=== PATIENT | female | born 1955 | race Asian ===

== ENCOUNTER 2019-02-14 08:49 | Emergency (ER) | payer MEDICAID, OTHER ==
[2019-02-14] MEDS ORDERED: IPRATROPIUM/ALBUTEROL 3 ML NEB INH STA (09:13)
[2019-02-14] MEDS ORDERED: CHERRY SYRUP 10 ML UDC PO ONE (09:13)
[2019-02-14] MEDS ORDERED: DEXAMETHASONE 10 MG/ML VIAL PO STA (09:13)
--- NOTE | 2019-02-14 09:17 | ED Physician Documentation ---
PD HPI DYSPNEA - Stated complaint Stated Complaint: SOA - Chief complaint Chief Complaint: Resp - History obtained from History obtained from: Patient, Family - History of Present Illness Timing - onset: How many days ago (4) Timing - onset during: Rest Timing - duration: Days (4) Timing - details: Gradual onset, Still present Inciting event(s): URI Improved by: Rest Worsened by: Exertion, Coughing Associated symptoms: Cough, Wheezing Similar symptoms before: Diagnosis (asthma) Recently seen: Not recently seen - Additional information Additional information: 63-year-old female with a remote history of asthma has not had use inhaler more than 10 years. She is developed a cough and congestion over the past 4 days and her friend who had the same cough is now resolved. The patient has increased shortness of breath and does not feel well.She has not had fever that she is aware of and she denies any pain in her ears or sinuses. Review of Systems Constitutional: reports: Fatigue. denies: Fever Eyes: denies: Decreased vision Ears: denies: Ear pain Nose: reports: Rhinorrhea / runny nose, Congestion Throat: denies: Sore throat Cardiac: denies: Chest pain / pressure, Palpitations Respiratory: reports: Dyspnea, Cough, Wheezing GI: denies: Abdominal Pain, Nausea, Vomiting : denies: Dysuria Skin: denies: Rash Musculoskeletal: denies: Neck pain, Back pain, Extremity pain Neurologic: denies: Generalized weakness, Focal weakness, Numbness PD PAST MEDICAL HISTORY - Present Medications Home Medications: Ambulatory Orders Medication Instructions Recorded Confirmed Albuterol Sulf [Ventolin Hfa 1 - 2 puffs INH Q4HR PRN #1 inhaler 02/14/19 Inhaler] Aspirin 325 mg PO 02/14/19 Azithromycin [Zithromax] 250 mg PO DAILY #6 tablet 02/14/19 Naproxen [Naprosyn] 250 mg PO ONCE 02/14/19 02/14/19 predniSONE [Prednisone] 40 mg PO DAILY #10 tablet 02/14/19 - Allergies Allergies/Adverse Reactions: Allergies Allergy/AdvReac Type Severity Reaction Status Date / Time clindamycin Allergy Rash Verified 02/14/19 08:58 PD ED PE NORMAL - Vitals Vital signs reviewed: Yes (tachycardic hypertensive and hypoxic ) - General General: Alert and oriented X 3, Well developed/nourished, Other (The patient is tachypneic at rest without audible wheeze. She has short shallow breaths. ) - HEENT HEENT: Atraumatic, PERRL, EOMI, Ears normal, Moist mucous membranes, Pharynx benign, Dentition benign - Neck Neck: Supple, no meningeal sign, No bony TTP - Cardiac Cardiac: RRR, No murmur - Respiratory Respiratory: Other (tachypneic at rest with markedly diminished breath sounds ) - Abdomen Abdomen: Soft, Non tender - Back Back: No CVA TTP, No spinal TTP - Derm Derm: Normal color, Warm and dry, No rash - Extremities Extremities: No deformity, No edema - Neuro Neuro: Alert and oriented X 3, perinatal specialist 2-12 intact, No motor deficit, No sensory deficit, Normal speech Eye Opening: Spontaneous Motor: Obeys Commands Verbal: Oriented GCS Score: 15 - Psych Psych: Normal mood, Normal affect Results - Vitals Vitals: Vital Signs - 24 hr 02/14/19 02/14/19 02/14/19 08:56 09:06 09:17 Temperature 37.2 C 36.8 C Heart Rate 114 H 110 H 105 H Respiratory 22 22 22 Rate Blood Pressure 122/96 H 132/112 H 151/94 H O2 Saturation 88 L 95 94 02/14/19 02/14/19 02/14/19 09:27 09:36 10:03 Temperature Heart Rate 101 H 101 H 101 H Respiratory 22 20 20 Rate Blood Pressure 160/93 H 111/69 O2 Saturation 93 2 L 02/14/19 02/14/19 02/14/19 10:06 10:16 11:03 Temperature 36.8 C Heart Rate 96 97 Respiratory 20 20 Rate Blood Pressure 112/71 O2 Saturation 95 93 Oxygen O2 Source Room air Oxygen Flow Rate 2 - Rads (name of study) chest 2 view Radiology: Prelim report reviewed (Impression: 1. No acute abnormality. 2 Benign anterior basilar left lower lobe parenchymal scar of no significance.), EMP read indepedently, See rad report PD MEDICAL DECISION MAKING - ED course Complexity details: reviewed results, re-evaluated patient, considered differential, d/w patient, d/w family ED course: 63-year-old female with a prior history of asthma has developed acute reactive airway disease and she is administered a DuoNeb treatment with marked improvement she is administered a second treatment consisting of albuterol she has further improvement. She is placed onto a course of antibiotic and prednisone as well as a prescription for an inhaler and she is taught use of the inhaler with spacer. Departure - Departure Disposition: 01 Home, Self Care Clinical Impression: Asthmatic bronchitis Qualifiers: Asthma severity: mild Asthma persistence: intermittent Asthma complication type: with acute exacerbation Qualified Code(s): J45.21 - Mild intermittent asthma with (acute) exacerbation Condition: Stable Instructions: ED Bronchitis Asthmatic Follow-Up: [facility] [Provider Group] Prescriptions: Albuterol Sulf [Ventolin Hfa Inhaler] 1 - 2 puffs INH Q4HR PRN #1 inhaler PRN Reason: Shortness Of Air/Wheezing Azithromycin [Zithromax] 250 mg PO DAILY #6 tablet predniSONE [Prednisone] 40 mg PO DAILY #10 tablet Discharge Date/Time: 02/14/19 11:04
--- NOTE | 2019-02-14 10:00 | XRAY Report ---
Reason: cough soa Procedure Date: 02/14/2019 Accession Number: [id number] / [id number] Procedure: XR - Chest 2 View X-Ray CPT Code: 25577 FULL RESULT: EXAM: CHEST RADIOGRAPHY EXAM DATE: 02/14/2019 09:28 AM. CLINICAL HISTORY: Cough/. COMPARISON: XR CHEST PA AND LAT 04/09/2010 12:59 PM-report only. TECHNIQUE: 2 views. FINDINGS: Lungs/Pleura: No suspicious abnormality. There has been essentially complete resolution of the previous lateral basilar left lower lobe parenchymal and pleural consolidation. There is only a thin residual linear parenchymal scar seen best on lateral view. No other focal abnormality. Mediastinum: Heart and mediastinal contours are unremarkable. Other: None. IMPRESSION: 1. No acute abnormality. 2. Benign anterior basilar left lower lobe parenchymal scar of no significance. RADIA
[2019-02-14] MEDS ORDERED: ALBUTEROL NEB 2.5 MG/3 ML INH STA (10:07)
[2019-02-14 11:04] VITALS: BP 112/71
== END 2019-02-14 11:04 | disposition home or self-care (01) ==
LOC: ED 08:49
DX: J45.21 Mild intermittent asthma with (acute) exacerbation (principal); R09.02 Hypoxemia
CPT/HCPCS: 71046; 94640; 99284; A9270

== ENCOUNTER 2021-07-16 20:01 | Emergency (ER) | payer MEDICARE, OTHER ==
[2021-07-16 20:28] LABS: BASOPHILS # (AUTO) 0.1 10^3/uL (0.0-0.1); BASOPHILS % (AUTO) 0.9 %; EOSINOPHILS # (AUTO) 0.1 10^3/uL (0.0-0.7); EOSINOPHILS % (AUTO) 0.5 %; HCT - HEMATOCRIT 45.9 % (37.0-47.0); HGB - HEMOGLOBIN 16.9 g/dL (12.0-16.0); LYMPHOCYTES # (AUTO) 1.6 10^3/uL (1.5-3.5); LYMPHOCYTES % (AUTO) 14.3 %; MEAN CORPUSCULAR HEMOGLOBIN 35.4 pg (27.0-31.0); MEAN CORPUSCULAR HGB CONC 36.8 g/dL (32.0-36.0); MEAN PLATELET VOLUME 9.5 fL (7.9-10.8); MONOCYTES # (AUTO) 0.7 10^3/uL (0.0-1.0); MONOCYTES % (AUTO) 6.6 %; NEUTROPHILS # (AUTO) 8.5 10^3/uL (1.5-6.6); NRBC ABSOLUTE COUNT (AUTO) 0.03 x10^3/uL; NUCLEATED RED BLOOD CELLS AUTO 0.3 /100WBC; PLT - PLATELET COUNT 257 10^3/uL (130-450); RED BLOOD COUNT 4.78 10^6/uL (4.20-5.40); RED CELL DISTRIBUTION WIDTH 11.8 % (12.0-15.0); WHITE BLOOD COUNT 11.1 x10^3/uL (4.8-10.8)
[2021-07-16 20:41] LABS: ALBUMIN 4.5 g/dL (3.2-5.5); ALBUMIN/GLOBULIN RATIO 1.3 (1.0-2.2); BILIRUBIN,TOTAL 2.3 mg/dL (0.2-1.0); CALCIUM 9.9 mg/dL (8.5-10.3); CREATININE 0.8 mg/dL (0.4-1.0); POTASSIUM 3.1 mmol/L (3.5-5.0)
[2021-07-16] MEDS ORDERED: ONDANSETRON 4 MG/2 ML VIAL IVP STA (21:09)
[2021-07-16] MEDS ORDERED: SODIUM CHLORIDE 0.9% 1,000 ML IV STA (21:09)
[2021-07-16] MEDS ORDERED: FAMOTIDINE 20 MG/2 ML VIAL IVP STA (21:09)
[2021-07-16] MEDS ORDERED: POTASSIUM CHLOR 10 MEQ/100 ML 10 MEQ/100 ML BAG IV ONE (21:47)
--- NOTE | 2021-07-16 22:45 | ED Physician Documentation ---
History of Present Illness - Stated complaint Stated Complaint: ABD PX/VOM - Chief complaint Chief Complaint: Abd Pain - History obtained from History obtained from: Patient - Additonal information Additional information: 65-year-old woman with no past surgical history, social history of 3-4 alcoholic beverages daily, presents with generalized abdominal pain for the past 3 or days, gradual onset, currently 7 out of 10, sharp, constant, epigastric and nonradiating, associated with nonbloody nonbilious nausea and vomiting yesterday and today and one episode with blood streaks in it today. Patient is having trouble keeping fluids down. Denies urinary symptoms, fever, back pain, diarrhea Review of Systems Ten Systems: 10 systems reviewed and negative Constitutional: denies: Fever, Chills Cardiac: denies: Chest pain / pressure Respiratory: denies: Dyspnea GI: reports: Abdominal Pain, Nausea, Vomiting. denies: Diarrhea : denies: Dysuria, Frequency PD PAST MEDICAL HISTORY - Present Medications Home Medications: Ambulatory Orders Medication Instructions Recorded Confirmed Albuterol Sulf [Ventolin Hfa 1 - 2 puffs INH Q4HR PRN #1 inhaler 02/14/19 Inhaler] Aspirin 325 mg PO 02/14/19 Azithromycin [Zithromax] 250 mg PO DAILY #6 tablet 02/14/19 Naproxen [Naprosyn] 250 mg PO ONCE 02/14/19 02/14/19 predniSONE [Prednisone] 40 mg PO DAILY #10 tablet 02/14/19 Famotidine [Pepcid] 20 mg PO BID PRN #20 tablet 07/16/21 Ondansetron Odt [Zofran Odt] 4 mg TL Q6H PRN #10 tablet 07/16/21 - Allergies Allergies/Adverse Reactions: Allergies Allergy/AdvReac Type Severity Reaction Status Date / Time clindamycin Allergy Rash Verified 07/16/21 20:10 PD ED PE NORMAL - Vitals Vital signs reviewed: Yes - General General: Alert and oriented X 3, No acute distress, Well developed/nourished - HEENT HEENT: Atraumatic, PERRL, EOMI - Neck Neck: Supple, no meningeal sign - Cardiac Cardiac: RRR - Respiratory Respiratory: No respiratory distress, Clear bilaterally - Abdomen Abdomen: Non tender, Non distended, Other (epigastric discomfort to palpation. negative zurita sign) - Back Back: No CVA TTP - Derm Derm: Normal color, Warm and dry - Extremities Extremities: No edema - Neuro Neuro: No motor deficit, No sensory deficit - Psych Psych: Normal mood, Normal affect Results - Vitals Vitals: Vital Signs - 24 hr 07/16/21 07/16/21 20:05 21:10 Temperature 36.3 C L Heart Rate 108 H 95 Respiratory 18 18 Rate Blood Pressure 161/95 H 173/96 H O2 Saturation 99 100 Oxygen O2 Source Room air - Labs Labs: Laboratory Tests 07/16/21 07/16/21 20:22 20:22 WBC 11.1 H RBC 4.78 Hgb 16.9 H Hct 45.9 MCV 96.0 MCH 35.4 H MCHC 36.8 H RDW 11.8 L Plt Count 257 MPV 9.5 Neut # (Auto) 8.5 H Lymph # (Auto) 1.6 [place] # (Auto) 0.7 Eos # (Auto) 0.1 Baso # (Auto) 0.1 Absolute Nucleated RBC 0.03 Nucleated RBC % 0.3 Sodium 132 L Potassium 3.1 L Chloride 97 L Carbon Dioxide 15 L Anion Gap 20.0 H BUN 12 Creatinine 0.8 Estimated GFR (MDRD) 72 L Glucose 162 H Calcium 9.9 Total Bilirubin 2.3 H AST 95 H ALT 66 H Alkaline Phosphatase 129 H Total Protein 8.0 Albumin 4.5 Globulin 3.5 Albumin/Globulin Ratio 1.3 Lipase 179 H PD MEDICAL DECISION MAKING - ED course ED course: 65-year-old woman presents with epigastric abdominal pain and history of daily alcohol use. Pain significantly improved status post Pepcid and Zofran from 7 out of 10 to 4 out of 10. Nausea resolved. Patient is tolerating p.o. in the emergency department. Return precautions discussed and patient will follow up with Dr. Castaneda for potential referral to GI. Departure - Departure Disposition: 01 Home, Self Care Clinical Impression: Nausea and vomiting, Hypokalemia, Abdominal pain Condition: Good Instructions: Abdominal Pain, ED Nausea Vomiting Follow-Up: Andrew Castaneda MD [Physician No Access] - Prescriptions: Famotidine [Pepcid] 20 mg PO BID PRN #20 tablet PRN Reason: Pain Ondansetron Odt [Zofran Odt] 4 mg TL Q6H PRN #10 tablet PRN Reason: Nausea / Vomiting Comments: You were seen in the emergency department for nausea and vomiting. Please follow-up with Dr. Castaneda for referral to GI. You may need follow-up endoscopy or further testing. Your lab work was normal here with the exception of some mild low potassium and so potassium supplementation was given. You can take Zofran for nausea at home and I am also giving you a short course of Pepcid, a stomach medicine that can help relieve pain. Please return to the emergency department if you have any new or worsening symptoms or concerns.
[2021-07-16 22:59] VITALS: BP 157/86
[2021-07-16 23:07] LABS: GLUCOSE, URINE (UA) NEGATIVE (NEGATIVE); KETONES,URINE (UA) >=80 mg/dL (NEGATIVE); LEUKOCYTE ESTERASE, URINE NEGATIVE (NEGATIVE); NITRITE,URINE NEGATIVE (NEGATIVE); OCCULT BLOOD,URINE MODERATE (NEGATIVE); PROTEIN,URINE TRACE mg/dL (NEGATIVE); UROBILINOGEN,URINE 0.2 (NORMAL) E.U./dL (NORMAL)
[2021-07-16 23:10] LABS: CLARITY,URINE CLEAR (CLEAR)
[2021-07-16 23:11] LABS: BILIRUBIN,URINE NEGATIVE (NEGATIVE); ICTOTEST,URINE NEGATIVE
[2021-07-16 23:15] LABS: WBC,URINE 0-3 /HPF (0-5)
[2021-07-16 23:16] LABS: BACTERIA,URINE Rare /HPF (None Seen); SQUAMOUS EPITHELIAL CELL,UR FEW Squamous (<= Few)
== END 2021-07-16 23:00 | disposition home or self-care (01) ==
LOC: ED 20:01
DX: R10.84 Generalized abdominal pain (principal); E87.6 Hypokalemia; R11.2 Nausea with vomiting, unspecified
CPT/HCPCS: 36415; 80053; 81001; 81003; 83690; 85025; 87086; 96365; 96375; 99284

== ENCOUNTER 2021-09-12 09:41 | Outpatient (CLI) | payer MEDICARE, OTHER ==
--- NOTE | 2021-09-12 17:41 | DEXA Report ---
PROCEDURE: Dexa Spine and/or Hip INDICATIONS: MENOPAUSAL DISORDER TECHNIQUE: Dual energy x-ray absorptiometry (DXA) was performed on a [employer] System. Regions measur ed are the AP Spine, femoral neck, and if needed forearm. COMPARISON: None. FINDINGS: Lumbar Spine: Bone Mineral Density 0.705 g/cm/cm,T score -4.0 Left Hip: Bone Mineral Density 0.542 g/cm/cm,T score -3.7 Left Femoral Neck: Bone Mineral Density 0.608 g/cm/cm, T score -3.1 (T score greater or equal to -1.0: NORMAL) (T score from -1.1 to -2.4: OSTEOPENIA) (T score less than or equal to -2.5 to: OSTEOPOROSIS) Impression: Osteoporosis Patients with diagnosis of osteoporosis or osteopenia should have regular bone mineral density assess ment. For those eligible for Medicare, routine testing is allowed once every 2 years. Testing frequ ency can be increased for patients who have rapidly progressing disease or for those who are receivin g medical therapy to restore bone mass. Reviewed by: Sohail Cloud MD on 09/12/2021 5:39 PM PDT Approved by: Sohail Cloud MD on 09/12/2021 5:39 PM PDT Station ID: [id number]
== END 2021-09-12 09:42 | disposition home or self-care (01) ==
LOC: DI 09:41
PROVIDERS: ATTEND Internal Medicine
DX: N95.9 Unspecified menopausal and perimenopausal disorder (principal); M81.0 Age-related osteoporosis without current pathological fracture

== ENCOUNTER 2021-11-10 09:37 | Outpatient (CLI) | payer MEDICARE, OTHER ==
--- NOTE | 2021-11-10 16:26 | XRAY Report ---
PROCEDURE: Chest 2 View X-Ray INDICATIONS: COUGH TECHNIQUE: 2 view(s) of the chest. COMPARISON: 02/14/2019. FINDINGS: Surgical changes and devices: None. Lungs and pleura: No pleural effusions or pneumothorax. Lungs are clear. Mediastinum: Mediastinal contours are normal. Heart size is normal. Bones and chest wall: No suspicious bony abnormalities. Soft tissues appear unremarkable. IMPRESSION: No acute cardiopulmonary disease process. Reviewed by: Bety Olmedo MD, PhD on 11/10/2021 4:24 PM PDT Approved by: Bety Olemdo MD, PhD on 11/10/2021 4:24 PM PDT Station ID: [id number]
== END 2021-11-10 09:38 | disposition home or self-care (01) ==
LOC: DI 09:37
PROVIDERS: ATTEND Internal Medicine
DX: R05.9 Cough, unspecified (principal)

== ENCOUNTER 2022-04-08 08:09 | Outpatient (CLI) | payer MEDICARE, OTHER | END 2022-04-08 08:10 | disposition critical access hospital (66) | LOC: EMS 08:09 | DX: R06.03 Acute respiratory distress (principal); R11.0 Nausea | CPT/HCPCS: A0425; A0427 ==

== ENCOUNTER 2022-04-08 08:19 | Emergency (ER) | payer MEDICARE, OTHER ==
[2022-04-08] MEDS ORDERED: ALBUTEROL NEB 2.5 MG/3 ML INH STA (08:55)
[2022-04-08] MEDS ORDERED: SODIUM CHLORIDE 0.9% 1,000 ML IV STA (08:55)
[2022-04-08 09:07] LABS: BASOPHILS % (AUTO) 0.5 %; EOSINOPHILS # (AUTO) 0.1 10^3/uL (0.0-0.7); EOSINOPHILS % (AUTO) 1.1 %; HCT - HEMATOCRIT 44.5 % (37.0-47.0); HGB - HEMOGLOBIN 15.6 g/dL (12.0-16.0); LYMPHOCYTES # (AUTO) 1.3 10^3/uL (1.5-3.5); LYMPHOCYTES % (AUTO) 15.2 %; MEAN CORPUSCULAR HEMOGLOBIN 34.1 pg (27.0-31.0); MEAN CORPUSCULAR HGB CONC 35.1 g/dL (32.0-36.0); MEAN CORPUSCULAR VOLUME 97.2 fL (81.0-99.0); MEAN PLATELET VOLUME 9.4 fL (7.9-10.8); MONOCYTES # (AUTO) 0.3 10^3/uL (0.0-1.0); MONOCYTES % (AUTO) 3.4 %; NEUTROPHILS # (AUTO) 6.7 10^3/uL (1.5-6.6); NEUTROPHILS % (AUTO) 79.4 %; PLT - PLATELET COUNT 285 10^3/uL (130-450); RED BLOOD COUNT 4.58 10^6/uL (4.20-5.40); RED CELL DISTRIBUTION WIDTH 12.4 % (12.0-15.0); WHITE BLOOD COUNT 8.4 x10^3/uL (4.8-10.8)
--- NOTE | 2022-04-08 09:20 | XRAY Report ---
PROCEDURE: Chest 1 View X-Ray INDICATIONS: chest pain TECHNIQUE: One view of the chest was acquired. COMPARISON: CXR 11/10/2021, 02/14/2019. FINDINGS: Surgical changes and devices: None. Lungs and pleura: Lungs appear clear. Blunting of the left costophrenic angle. No pleural fusion. Mediastinum: Mediastinal contours appear normal. Heart size is normal. Bones and chest wall: No suspicious bony lesions. Overlying soft tissues appear unremarkable. IMPRESSION: Trace left pleural effusion suspected. No consolidation identified. Reviewed by: Sameer Sellers MD on 04/08/2022 9:[address] [facility] Approved by: Sameer Sellers MD on 04/08/2022 9:[address] [facility] Station ID: [id number]
[2022-04-08 09:21] LABS: ALBUMIN/GLOBULIN RATIO 1.4 (1.0-2.2); BILIRUBIN,TOTAL 3.1 mg/dL (0.2-1.0); CALCIUM 8.7 mg/dL (8.5-10.3); CREATININE 0.5 mg/dL (0.4-1.0); POTASSIUM 3.9 mmol/L (3.5-5.0); TOTAL PROTEIN 6.9 g/dL (6.7-8.2)
--- NOTE | 2022-04-08 10:11 | ED Physician Documentation ---
PD HPI DYSPNEA - Stated complaint Stated Complaint: SOA - Chief complaint Chief Complaint: Resp - History obtained from History obtained from: Patient, Family, EMS - Additional information Additional information: The patient comes to the emergency department chief complaint of shortness of breath over the last day. She has a history of asthma and likely COPD, as she has a previous smoking history of 40 years. The patient states she uses inhalers at home and has had episodes like this before, but not as bad. She is not sure what triggered it. Her states they do have a wood stove at home a nd that this sometimes does put out some dust and a little smoke. They do have an heap of filter their house which keeps some of the other dust down. The patient denies being ill recently. She denies fevers or new cough. Medics state when they arrived, the patient sats were in the Upper 70s ended up putting her on CPAP in route. She also got a DuoNeb and an albuterol neb, along with some IV Solu-Medrol, and had visible improvement during the transport. No other complaints at this time. Review of Systems Ten Systems: 10 systems reviewed and negative Constitutional: reports: Reviewed and negative Eyes: reports: Reviewed and negative Ears: reports: Reviewed and negative Nose: reports: Reviewed and negative Throat: reports: Reviewed and negative Cardiac: reports: Reviewed and negative Respiratory: reports: Dyspnea, Wheezing GI: reports: Reviewed and negative : reports: Reviewed and negative Skin: reports: Reviewed and negative Musculoskeletal: reports: Reviewed and negative Neurologic: reports: Reviewed and negative Psychiatric: reports: Reviewed and negative Endocrine: reports: Reviewed and negative Immunocompromised: reports: Reviewed and negative PD PAST MEDICAL HISTORY - Past Medical History Past Medical History: Yes Cardiovascular: Hypertension Respiratory: Asthma Neuro: Tremors Endocrine/Autoimmune: None GI: None 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 : None HEENT: None Psych: None Musculoskeletal: None Derm: None - Past Surgical History Past Surgical History: No - Present Medications Home Medications: Ambulatory Orders Medication Instructions Recorded Confirmed Albuterol Sulf [Ventolin Hfa 1 - 2 puffs INH Q4HR PRN #1 inhaler 02/14/19 04/08/22 Inhaler] Propranolol [Inderal] 40 mg PO TID 10/24/21 04/08/22 Albuterol Sulf [Ventolin Hfa 1 - 2 puffs INH Q4HR PRN #1 each 04/08/22 Inhaler] predniSONE [Deltasone] 60 mg PO DAILY 5 Days #15 tablet 04/08/22 - Allergies Allergies/Adverse Reactions: Allergies Allergy/AdvReac Type Severity Reaction Status Date / Time clindamycin Allergy Rash Verified 04/08/22 08:48 - Social History Does the pt smoke?: No Smoking Status: Current some day smoker Does the pt drink ETOH?: Yes ETOH Use: Liquor Does the pt have substance abuse?: Yes Substance Use and Type: CBD oil / Products - Immunizations Immunizations are current?: No Immunizations: Other immun not current PD ED PE NORMAL - Vitals Vital signs reviewed: Yes - General General: Alert and oriented X 3, Well developed/nourished, Other (Mild respiratory distress, speaking in full sentences with CPAP mask on) - HEENT HEENT: Atraumatic, PERRL, EOMI, Moist mucous membranes - Neck Neck: Supple, no meningeal sign - Cardiac Cardiac: RRR, No murmur, Strong equal pulses - Respiratory Respiratory: Other (Moderately diminished air movement bilaterally with fine wheezes. Mildly labored respirations.) - Abdomen Abdomen: Soft, Non tender, Non distended - Derm Derm: Normal color, Warm and dry, No rash - Extremities Extremities: No deformity, No edema - Neuro Neuro: Alert and oriented X 3 - Psych Psych: Normal mood, Normal affect Results - Vitals Vitals: Vital Signs - 24 hr 04/08/22 04/08/22 04/08/22 08:49 09:09 09:20 Temperature 37.4 C Heart Rate 84 84 89 Respiratory 26 H 22 19 Rate Blood Pressure 158/115 H 134/97 H O2 Saturation 98 97 If not protocol 2 4 : Oxygen Flow, liters/minute 04/08/22 04/08/22 09:33 10:00 Temperature Heart Rate 80 79 Respiratory 25 H 21 Rate Blood Pressure 116/79 112/72 O2 Saturation 100 97 If not protocol 2 2 : Oxygen Flow, liters/minute Oxygen O2 Source Nasal cannula Oxygen Flow Rate 2 - Labs Labs: Laboratory Tests 04/08/22 04/08/22 09:02 09:02 WBC 8.4 RBC 4.58 Hgb 15.6 Hct 44.5 MCV 97.2 MCH 34.1 H MCHC 35.1 RDW 12.4 Plt Count 285 MPV 9.4 Neut # (Auto) 6.7 H Lymph # (Auto) 1.3 L [place] # (Auto) 0.3 Eos # (Auto) 0.1 Baso # (Auto) 0.0 Absolute Nucleated RBC 0.00 Nucleated RBC % 0.0 Sodium 140 Potassium 3.9 Chloride 96 L Carbon Dioxide 27 Anion Gap 17.0 H BUN 13 Creatinine 0.5 Estimated GFR (MDRD) 123 Glucose 162 H Calcium 8.7 Total Bilirubin 3.1 H AST 138 H ALT 45 Alkaline Phosphatase 170 H Total Protein 6.9 Albumin 4.0 Globulin 2.9 Albumin/Globulin Ratio 1.4 Lipase 26 - Rads (name of study) cxr Radiology: Final report received, EMP read indepedently, See rad report (Trace pleural effusion, otherwise negative) PD MEDICAL DECISION MAKING - ED course Complexity details: reviewed old records, reviewed results, re-evaluated patient, considered differential, d/w patient ED course: The patient was given 1 more albuterol nebulizer treatment here in the ED. Her chest x-ray is unremarkable and on reevaluation, the patient was on 2 L of oxygen per nasal cannula, speaking easily in full sentences and looking very bright and perky. Patient was very much improved and felt that she was stable for discharge home. I will refill her albuterol inhaler and will also give her prescription for steroids. We have discussed the usual indications for return. Departure - Departure Disposition: 01 Home, Self Care Clinical Impression: COPD exacerbation Condition: Stable Instructions: ED COPD Flare Prescriptions: Albuterol Sulf [Ventolin Hfa Inhaler] 1 - 2 puffs INH Q4HR PRN #1 each PRN Reason: Shortness Of Air/Wheezing predniSONE [Deltasone] 60 mg PO DAILY 5 Days #15 tablet Comments: Your prescriptions have been electronically transmitted to the [facility] pharmacy in [place]. You have improved greatly with treatment in route and here in the emergency department. Please continue to take your albuterol inhaler up to every 4 hours if needed and take the steroids as well. If you are not getting relief with the use of these medications at home, then please seek reevaluation.
[2022-04-08 10:14] VITALS: BP 112/72
[2022-04-08 11:30] LABS: B. PARAPERTUSSIS- RESP PCR PAN NOT DETECTED; B. PERTUSSIS- RESP PCR PANEL NOT DETECTED; C. PNEUMONIAE- RESP PCR PANEL NOT DETECTED; CORONAVIRUS 229E-RESP PCR NOT DETECTED; CORONAVIRUS HKU1-RESP PCR NOT DETECTED; CORONAVIRUS NL63-RESP PCR NOT DETECTED; CORONAVIRUS OC43-RESP PCR NOT DETECTED; HUMAN METAPNEUMOVIRUS NOT DETECTED; INFLUENZA A- RESP PCR PANEL NOT DETECTED; INFLUENZA B - RESP PCR PANEL NOT DETECTED; M. PNEUMONIAE- RESP PCR PANEL NOT DETECTED; PARAINFLUENZA VIRUS 1 NOT DETECTED; PARAINFLUENZA VIRUS 2 NOT DETECTED; PARAINFLUENZA VIRUS 3 NOT DETECTED; PARAINFLUENZA VIRUS 4 NOT DETECTED; RHINOVIRUS/ENTEROVIRUS NOT DETECTED; RSV- RESP PCR PANEL NOT DETECTED; SARS-CoV-2 -RESP PCR PANEL NOT DETECTED
== END 2022-04-08 10:38 | disposition home or self-care (01) ==
LOC: EDUNIT# → ED 08:19
DX: J44.1 Chronic obstructive pulmonary disease with (acute) exacerbation (principal); Z87.891 Personal history of nicotine dependence
CPT/HCPCS: 36415; 80053; 83690; 85025; 87633; 94640; 94664; 99283

== ENCOUNTER 2022-05-19 08:33 | Emergency (ER) | payer MEDICARE, OTHER ==
[2022-05-19] MEDS ORDERED: IPRATROPIUM/ALBUTEROL 3 ML NEB INH STA ×2 (08:57→08:58)
[2022-05-19] MEDS ORDERED: predniSONE 20 MG TABLET PO STA (08:57)
[2022-05-19 09:17] LABS: BASOPHILS # (AUTO) 0.1 10^3/uL (0.0-0.1); BASOPHILS % (AUTO) 0.7 %; EOSINOPHILS # (AUTO) 0.5 10^3/uL (0.0-0.7); HCT - HEMATOCRIT 44.4 % (37.0-47.0); HGB - HEMOGLOBIN 14.9 g/dL (12.0-16.0); LYMPHOCYTES # (AUTO) 2.9 10^3/uL (1.5-3.5); LYMPHOCYTES % (AUTO) 40.1 %; MEAN CORPUSCULAR HEMOGLOBIN 33.2 pg (27.0-31.0); MEAN CORPUSCULAR HGB CONC 33.6 g/dL (32.0-36.0); MEAN CORPUSCULAR VOLUME 98.9 fL (81.0-99.0); MEAN PLATELET VOLUME 9.2 fL (7.9-10.8); MONOCYTES # (AUTO) 0.5 10^3/uL (0.0-1.0); MONOCYTES % (AUTO) 6.8 %; NEUTROPHILS # (AUTO) 3.3 10^3/uL (1.5-6.6); NEUTROPHILS % (AUTO) 45.1 %; PLT - PLATELET COUNT 288 10^3/uL (130-450); RED BLOOD COUNT 4.49 10^6/uL (4.20-5.40); RED CELL DISTRIBUTION WIDTH 12.9 % (12.0-15.0); WHITE BLOOD COUNT 7.3 x10^3/uL (4.8-10.8)
--- NOTE | 2022-05-19 09:18 | XRAY Report ---
PROCEDURE: Chest 1 View X-Ray INDICATIONS: Shortness of breath TECHNIQUE: One view of the chest was acquired. COMPARISON: 04/08/2022, 11/10/2021 FINDINGS: Surgical changes and devices: None. Lungs and pleura: No focal infiltrates are seen. There is stable blunting of the left costophrenic a ngle. The right costophrenic angle appears normal. No pneumothorax is seen. Mediastinum: Mediastinal contours appear normal. Heart size is normal. Bones and chest wall: No suspicious bony lesions. Age-appropriate degenerative changes are seen. Overlying soft tissues appear unremarkable. IMPRESSION: Stable study demonstrating stable blunting of the left costophrenic angle. A small pleural effusion i s suspected. Reviewed by: John Saldivar MD on 05/19/2022 8:17 AM [facility] Approved by: John Saldivar MD on 05/19/2022 8:17 AM [facility] Station ID: [id number]
[2022-05-19 09:30] LABS: ALBUMIN 4.2 g/dL (3.2-5.5); ALBUMIN/GLOBULIN RATIO 1.4 (1.0-2.2); BILIRUBIN,TOTAL 1.7 mg/dL (0.2-1.0); CALCIUM 9.1 mg/dL (8.5-10.3); CREATININE 0.4 mg/dL (0.4-1.0); TOTAL PROTEIN 7.3 g/dL (6.7-8.2)
[2022-05-19 09:31] LABS: POTASSIUM 4.1 mmol/L (3.5-5.0)
[2022-05-19 10:20] LABS: B. PARAPERTUSSIS- RESP PCR PAN NOT DETECTED; B. PERTUSSIS- RESP PCR PANEL NOT DETECTED; C. PNEUMONIAE- RESP PCR PANEL NOT DETECTED; CORONAVIRUS 229E-RESP PCR NOT DETECTED; CORONAVIRUS HKU1-RESP PCR NOT DETECTED; CORONAVIRUS NL63-RESP PCR NOT DETECTED; CORONAVIRUS OC43-RESP PCR NOT DETECTED; HUMAN METAPNEUMOVIRUS NOT DETECTED; INFLUENZA A- RESP PCR PANEL NOT DETECTED; INFLUENZA B - RESP PCR PANEL NOT DETECTED; M. PNEUMONIAE- RESP PCR PANEL NOT DETECTED; PARAINFLUENZA VIRUS 1 NOT DETECTED; PARAINFLUENZA VIRUS 2 NOT DETECTED; PARAINFLUENZA VIRUS 3 NOT DETECTED; PARAINFLUENZA VIRUS 4 NOT DETECTED; RHINOVIRUS/ENTEROVIRUS NOT DETECTED; RSV- RESP PCR PANEL NOT DETECTED; SARS-CoV-2 -RESP PCR PANEL NOT DETECTED
--- NOTE | 2022-05-19 10:35 | ED Physician Documentation ---
PD HPI DYSPNEA - Stated complaint Stated Complaint: SOA/COUGH - Chief complaint Chief Complaint: Resp - History obtained from History obtained from: Patient - Additional information Additional information: Patient is a 66-year-old who has a history of COPD Presenting for evaluation of shortness of breath for the past 3 days.Patient reports she has had a cough productive of clear sputum. She has been using her inhaler at home without any significant improvement. She denies chest pain. She denies abdominal pain, vomiting, leg swelling. Review of Systems Constitutional: denies: Fever Nose: denies: Congestion Cardiac: denies: Chest pain / pressure Respiratory: reports: Dyspnea, Cough GI: denies: Abdominal Pain : denies: Dysuria Musculoskeletal: denies: Back pain Neurologic: denies: Headache PD PAST MEDICAL HISTORY - Past Medical History Cardiovascular: Hypertension Respiratory: Asthma Neuro: Tremors Endocrine/Autoimmune: None GI: None OPTIONS ADVISOR: None : None HEENT: None Psych: None Musculoskeletal: None Derm: None - Past Surgical History Past Surgical History: No - Present Medications Home Medications: Ambulatory Orders Medication Instructions Recorded Confirmed Albuterol Sulf [Ventolin Hfa 1 - 2 puffs INH Q4HR PRN #1 inhaler 02/14/19 05/04/22 Inhaler] Propranolol [Inderal] 40 mg PO TID 10/24/21 05/04/22 Carbidopa/Levodopa 1 each PO DAILY 05/04/22 05/04/22 [Carbidopa-Levodopa 25-100 Tab] Benzonatate [Tessalon] 100 mg PO TID #15 cap 05/19/22 predniSONE [Deltasone] 60 mg PO DAILY 4 Days #12 tablet 05/19/22 - Allergies Allergies/Adverse Reactions: Allergies Allergy/AdvReac Type Severity Reaction Status Date / Time clindamycin Allergy Rash Verified 04/08/22 08:48 - Social History Does the pt smoke?: No Smoking Status: Current some day smoker Does the pt drink ETOH?: Yes Does the pt have substance abuse?: Yes - Immunizations Immunizations are current?: No Immunizations: Other immun not current PD ED PE NORMAL - General General: Alert and oriented X 3, No acute distress, Well developed/nourished - HEENT HEENT: Atraumatic - Neck Neck: Supple, no meningeal sign - Cardiac Cardiac: RRR, No murmur - Respiratory Respiratory: No respiratory distress, Other (Diffuse wheezing) - Abdomen Abdomen: Soft, Non tender - Derm Derm: Warm and dry - Extremities Extremities: No edema, No calf tenderness / cord - Neuro Neuro: Normal speech Results - Vitals Vitals: Vital Signs - 24 hr 05/19/22 05/19/22 05/19/22 08:43 08:50 09:16 Temperature 37.2 C Heart Rate 62 63 68 Respiratory 16 16 22 Rate Blood Pressure 201/96 H O2 Saturation 90 L 97 05/19/22 05/19/22 05/19/22 09:20 09:42 10:00 Temperature Heart Rate 63 60 68 Respiratory 18 18 21 Rate Blood Pressure 200/99 H 178/91 H 173/84 H O2 Saturation 95 94 95 05/19/22 10:30 Temperature Heart Rate 65 Respiratory 24 Rate Blood Pressure 198/99 H O2 Saturation 93 Oxygen O2 Source Room air - EKG (time done) 0917 Rate: Rate (enter#) (57) Rhythm: NSR [place]: Normal Ischemia: No: ST elevation c/w ischemia - Labs Labs: Laboratory Tests 05/19/22 05/19/22 05/19/22 09:05 09:11 09:11 WBC 7.3 RBC 4.49 Hgb 14.9 Hct 44.4 MCV 98.9 MCH 33.2 H MCHC 33.6 RDW 12.9 Plt Count 288 MPV 9.2 Neut # (Auto) 3.3 Lymph # (Auto) 2.9 [place] # (Auto) 0.5 Eos # (Auto) 0.5 Baso # (Auto) 0.1 Absolute Nucleated RBC 0.00 Nucleated RBC % 0.0 Sodium 137 Potassium 4.1 Chloride 98 L Carbon Dioxide 29 Anion Gap 10.0 BUN 14 Creatinine 0.4 Estimated GFR (MDRD) 160 Glucose 164 H Calcium 9.1 Total Bilirubin 1.7 H AST 31 ALT 16 Alkaline Phosphatase 71 Total Protein 7.3 Albumin 4.2 Globulin 3.1 Albumin/Globulin Ratio 1.4 Nasal Adenovirus (PCR) NOT DETECTED Nasal B. parapertussis DNA (PCR) NOT DETECTED Nasal Coronavir 229E PCR NOT DETECTED Nasal Coronavir HKU1 PCR NOT DETECTED Nasal Coronavir NL63 PCR NOT DETECTED Nasal Coronavir OC43 PCR NOT DETECTED Nasal Enterovir/Rhinovir PCR NOT DETECTED Nasal Influenza B PCR NOT DETECTED Nasal Influenza A PCR NOT DETECTED Nasal Parainfluen 1 PCR NOT DETECTED Nasal Parainfluen 2 PCR NOT DETECTED Nasal Parainfluen 3 PCR NOT DETECTED Nasal Parainfluen 4 PCR NOT DETECTED Nasal RSV (PCR) NOT DETECTED Nasal B.pertussis DNA PCR NOT DETECTED Nasal C.pneumoniae (PCR) NOT DETECTED Jaskaran Human Metapneumo PCR NOT DETECTED Nasal M.pneumoniae (PCR) NOT DETECTED Nasal SARS-CoV-2 (PCR) NOT DETECTED PD Medical Decision Making - ED course Complexity details: reviewed results, re-evaluated patient, d/w patient ED course: Patient is a 66-year-old presenting for evaluation of shortness of breath. Patient is wheezing but not requiring oxygen. She had improvement after 1 neb treatment. She was started on steroids. Labs, EKG, chest x-ray and respiratory panel were reviewed. No signs of pneumonia. Patient counseled on concerning symptoms to return for as well as plan for continued steroids, Albuterol as needed. Departure - Departure Disposition: 01 Home, Self Care Clinical Impression: COPD with exacerbation Condition: Stable Instructions: ED COPD Flare Prescriptions: predniSONE [Deltasone] 60 mg PO DAILY 4 Days #12 tablet Benzonatate [Tessalon] 100 mg PO TID #15 cap Comments: Your chest x-ray does not show pneumonia and your respiratory panel is negative. The respiratory panel checks for a number of common cold viruses as well as influenza, RSV and COVID. I will continue you on prednisone for the next 4 days and have also sent a prescription for cough medication to [facility] in [place]. Please make sure you use your inhaler as needed. If you have any worsening symptoms please consider return to the emergency department. Discharge Date/Time: 05/19/22 11:07
[2022-05-19 10:54] VITALS: BP 198/99
== END 2022-05-19 11:07 | disposition home or self-care (01) ==
LOC: ED 08:33
DX: J44.1 Chronic obstructive pulmonary disease with (acute) exacerbation (principal); F17.200 Nicotine dependence, unspecified, uncomplicated; Z20.822 Contact with and (suspected) exposure to COVID-19
CPT/HCPCS: 36415; 71045; 80053; 85025; 87633; 93005; 94640; 99284; J7512

== ENCOUNTER 2022-08-24 07:02 | Outpatient (CLI) | payer MEDICARE, OTHER | END 2022-08-24 23:59 | disposition critical access hospital (66) | LOC: EMS 07:02 | DX: R06.02 Shortness of breath (principal) | CPT/HCPCS: A0425; A0427 ==

== ENCOUNTER 2022-08-24 07:14 | Inpatient (IN) | payer MEDICARE, OTHER ==
[2022-08-24] MEDS ORDERED: IPRATROPIUM/ALBUTEROL 3 ML NEB INH STA (07:33)
[2022-08-24] MEDS ORDERED: DEXAMETHASONE 10 MG/ML VIAL IVP STA (07:34)
--- NOTE | 2022-08-24 07:35 | ED Physician Documentation ---
PD HPI DYSPNEA - Stated complaint Stated Complaint: RESP DISTRESS - Chief complaint Chief Complaint: Resp - History obtained from History obtained from: Patient - History of Present Illness Timing - onset: How many days ago (several days of cough, congestion, wheezing. Recent travel to [place] and started symptoms 2 days after returning.) Timing - details: Gradual onset, Still present Inciting event(s): URI, Immobilization/travel Improved by: Inhaler/neb (moderately initially, not well today.) Worsened by: Exertion, Coughing Associated symptoms: Cough, Wheezing. No: Bilateral edema, Unilateral edema Recently seen: Not recently seen Review of Systems Constitutional: reports: Chills, Myalgias, Fatigue Nose: reports: Congestion Throat: denies: Sore throat Cardiac: denies: Chest pain / pressure, Palpitations, Pedal edema, Calf pain Respiratory: reports: Dyspnea, Cough, Wheezing GI: denies: Vomiting, Diarrhea PD PAST MEDICAL HISTORY - Past Medical History Cardiovascular: Hypertension Respiratory: COPD Neuro: Tremors Endocrine/Autoimmune: None GI: None LIVING SKILLS ADVISOR: None : None HEENT: None Psych: None Musculoskeletal: None Derm: None - Past Surgical History Past Surgical History: No - Present Medications Home Medications: Ambulatory Orders Medication Instructions Recorded Confirmed Albuterol Sulf [Ventolin Hfa 1 - 2 puffs INH Q4HR PRN #1 inhaler 02/14/19 08/24/22 Inhaler] Propranolol [Inderal] 40 mg PO BID 10/24/21 08/24/22 Carbidopa/Levodopa 1 each PO BID 05/04/22 08/24/22 [Carbidopa-Levodopa 25-100 Tab] Aspirin [Greg] 1 tab PO DAILY 08/24/22 08/24/22 Beclomethasone Dipropionate [Qvar 2 puffs PO BID 08/24/22 08/24/22 Redihaler (40 mcg)] Carboxymethylcellulose 1% Opht 1 drops EACHEYE PRN PRN 08/24/22 08/24/22 [Refresh 1% Ophth Drops] Multivitamin with Minerals 1 tab PO DAILY 08/24/22 08/24/22 [Multivitamins with Minerals] - Allergies Allergies/Adverse Reactions: Allergies Allergy/AdvReac Type Severity Reaction Status Date / Time clindamycin Allergy Rash Verified 08/24/22 07:24 - Social History Does the pt smoke?: No Smoking Status: Current some day smoker Does the pt drink ETOH?: Yes Does the pt have substance abuse?: Yes - Immunizations Immunizations are current?: No Immunizations: Other immun not current PD ED PE NORMAL - Vitals Vital signs reviewed: Yes - General General: Alert and oriented X 3, Well developed/nourished, Other (some accessory muscle use and partial sentence dyspnea initially in ER. ) - HEENT HEENT: Ears normal, Moist mucous membranes, Pharynx benign - Neck Neck: Supple, no meningeal sign, No adenopathy - Cardiac Cardiac: RRR, No murmur - Respiratory Respiratory: No: Clear bilaterally (exp wheezing difffusely. No coarse sounds. No CHF. ) - Abdomen Abdomen: Soft, Non tender - Derm Derm: Normal color, Warm and dry - Extremities Extremities: No edema, No calf tenderness / cord - Neuro Neuro: Alert and oriented X 3, No motor deficit, Normal speech Results - Vitals Vitals: Vital Signs - 24 hr 08/24/22 08/24/22 08/24/22 07:19 07:48 08:06 Temperature 36.8 C Heart Rate 92 77 81 Respiratory 21 16 22 Rate Blood Pressure 186/160 H 149/79 H O2 Saturation 89 L 94 If not protocol 2 : Oxygen Flow, liters/minute 08/24/22 08/24/22 08/24/22 09:30 10:17 11:00 Temperature Heart Rate 76 87 Respiratory 20 20 Rate Blood Pressure 130/74 O2 Saturation 88 L 2 L If not protocol : Oxygen Flow, liters/minute 08/24/22 13:02 Temperature Heart Rate 93 Respiratory 22 Rate Blood Pressure 137/112 H O2 Saturation 94 If not protocol 2 : Oxygen Flow, liters/minute Oxygen O2 Source Nasal cannula Oxygen Flow Rate 2 - Labs Labs: Laboratory Tests 08/24/22 08/24/22 08/24/22 07:42 07:42 07:42 WBC 9.4 RBC 3.95 L Hgb 13.4 Hct 39.7 MCV 100.5 H MCH 33.9 H MCHC 33.8 RDW 13.3 Plt Count 314 MPV 9.1 Neut # (Auto) 6.6 Lymph # (Auto) 1.6 [place] # (Auto) 1.0 Eos # (Auto) 0.1 Baso # (Auto) 0.1 Absolute Nucleated RBC 0.00 Nucleated RBC % 0.0 Sodium 140 Potassium 3.2 L Chloride 101 Carbon Dioxide 27 Anion Gap 12.0 BUN 14 Creatinine 0.4 Estimated GFR (MDRD) 160 Glucose 123 H Calcium 8.8 Magnesium 2.0 Total Bilirubin 1.5 H AST 37 ALT 22 Alkaline Phosphatase 92 B-Natriuretic Peptide 178 H Total Protein 6.7 Albumin 3.8 Globulin 2.9 Albumin/Globulin Ratio 1.3 Lipase 29 Nasal Adenovirus (PCR) Nasal B. parapertussis DNA (PCR) Nasal Coronavir 229E PCR Nasal Coronavir HKU1 PCR Nasal Coronavir NL63 PCR Nasal Coronavir OC43 PCR Nasal Enterovir/Rhinovir PCR Nasal Influenza B PCR Nasal Influenza A PCR Nasal Parainfluen 1 PCR Nasal Parainfluen 2 PCR Nasal Parainfluen 3 PCR Nasal Parainfluen 4 PCR Nasal RSV (PCR) Nasal B.pertussis DNA PCR Nasal C.pneumoniae (PCR) Jaskaran Human Metapneumo PCR Nasal M.pneumoniae (PCR) Nasal SARS-CoV-2 (PCR) 08/24/22 07:43 WBC RBC Hgb Hct MCV MCH MCHC RDW Plt Count MPV Neut # (Auto) Lymph # (Auto) [place] # (Auto) Eos # (Auto) Baso # (Auto) Absolute Nucleated RBC Nucleated RBC % Sodium Potassium Chloride Carbon Dioxide Anion Gap BUN Creatinine Estimated GFR (MDRD) Glucose Calcium Magnesium Total Bilirubin AST ALT Alkaline Phosphatase B-Natriuretic Peptide Total Protein Albumin Globulin Albumin/Globulin Ratio Lipase Nasal Adenovirus (PCR) NOT DETECTED Nasal B. parapertussis DNA (PCR) NOT DETECTED Nasal Coronavir 229E PCR NOT DETECTED Nasal Coronavir HKU1 PCR NOT DETECTED Nasal Coronavir NL63 PCR NOT DETECTED Nasal Coronavir OC43 PCR NOT DETECTED Nasal Enterovir/Rhinovir PCR DETECTED A Nasal Influenza B PCR NOT DETECTED Nasal Influenza A PCR NOT DETECTED Nasal Parainfluen 1 PCR NOT DETECTED Nasal Parainfluen 2 PCR NOT DETECTED Nasal Parainfluen 3 PCR NOT DETECTED Nasal Parainfluen 4 PCR NOT DETECTED Nasal RSV (PCR) NOT DETECTED Nasal B.pertussis DNA PCR NOT DETECTED Nasal C.pneumoniae (PCR) NOT DETECTED Jaskaran Human Metapneumo PCR NOT DETECTED Nasal M.pneumoniae (PCR) NOT DETECTED Nasal SARS-CoV-2 (PCR) NOT DETECTED - Rads (name of study) chest xray Relevant Findings:: Prelim report reviewed, EMP independent interpretation of test (no infiltrates. Hyperexpanded lungs c/w COPD. ), See rad report PD Medical Decision Making - ED course Complexity details: re-evaluated patient (after neb treatments and steroids, much less laboring of breathing. Off oxygen however is still 88% saturation after just a minute. Rebounds back to 92% with just NC. ), considered differential (seems like infectious process with COPD flare. Exam does not suggest PE. No findings to suggest CHF.), d/w patient, d/w funeral pre need consultant (Hospitalist - who concurred the patient should be treated in the hospital. ) Reviewed Lab Results: chest xray without infiltrates. wbc not elevated at 9. resp viral panel positive for rhinovirus. Potassium at 3.2 low, with other electrolytes and renal function normal range. ED course: She has viral illness with exac of coPD. However, guidelines typically suggest use of antibiotics in COPD flares, so given dose Augmentin. Departure - Departure Disposition: ED Place in Observation Clinical Impression: Viral URI with cough, Acute exacerbation of COPD with asthma, Hypoxemia requiring supplemental oxygen Condition: Stable Record reviewed to determine appropriate education?: Yes Discharge Date/Time: 08/24/22 14:08
[2022-08-24 07:48] LABS: BASOPHILS # (AUTO) 0.1 10^3/uL (0.0-0.1); BASOPHILS % (AUTO) 0.6 %; EOSINOPHILS # (AUTO) 0.1 10^3/uL (0.0-0.7); EOSINOPHILS % (AUTO) 1.3 %; HCT - HEMATOCRIT 39.7 % (37.0-47.0); HGB - HEMOGLOBIN 13.4 g/dL (12.0-16.0); LYMPHOCYTES # (AUTO) 1.6 10^3/uL (1.5-3.5); LYMPHOCYTES % (AUTO) 17.3 %; MEAN CORPUSCULAR HEMOGLOBIN 33.9 pg (27.0-31.0); MEAN CORPUSCULAR HGB CONC 33.8 g/dL (32.0-36.0); MEAN CORPUSCULAR VOLUME 100.5 fL (81.0-99.0); MEAN PLATELET VOLUME 9.1 fL (7.9-10.8); MONOCYTES % (AUTO) 10.3 %; NEUTROPHILS # (AUTO) 6.6 10^3/uL (1.5-6.6); NEUTROPHILS % (AUTO) 70.1 %; PLT - PLATELET COUNT 314 10^3/uL (130-450); RED BLOOD COUNT 3.95 10^6/uL (4.20-5.40); RED CELL DISTRIBUTION WIDTH 13.3 % (12.0-15.0); WHITE BLOOD COUNT 9.4 x10^3/uL (4.8-10.8)
[2022-08-24 08:00] LABS: ALBUMIN 3.8 g/dL (3.2-5.5); ALBUMIN/GLOBULIN RATIO 1.3 (1.0-2.2); BILIRUBIN,TOTAL 1.5 mg/dL (0.2-1.0); CALCIUM 8.8 mg/dL (8.5-10.3); CREATININE 0.4 mg/dL (0.4-1.0); POTASSIUM 3.2 mmol/L (3.5-5.0); TOTAL PROTEIN 6.7 g/dL (6.7-8.2)
[2022-08-24] MEDS ORDERED: POTASSIUM CHLORIDE 10 MEQ CAPSULE PO STA (08:12)
--- NOTE | 2022-08-24 08:18 | XRAY Report ---
PROCEDURE: Chest 1 View X-Ray INDICATIONS: chest pain TECHNIQUE: One view of the chest was acquired. COMPARISON: 04/08/2022, 05/19/2022, 11/10/2021. FINDINGS: Surgical changes and devices: None. Lungs and pleura: Blunting of left costophrenic angle is seen . No pneumothorax. Lungs are clear. Mediastinum: Mediastinal contours appear normal. Heart size is normal. Bones and chest wall: No suspicious bony lesions. Overlying soft tissues appear unremarkable. IMPRESSION: Blunting of left costophrenic angle which may represent trace pleural effusion versus thickening unch anged from prior study. No focal infiltrate or pneumothorax. Right lung is clear. Reviewed by: Karsten Pierce MD on 08/24/2022 8:17 AM PDT Approved by: Karsten Pierce MD on 08/24/2022 8:17 AM PDT Station ID: [id number]
[2022-08-24 08:44] LABS: B. PARAPERTUSSIS- RESP PCR PAN NOT DETECTED; B. PERTUSSIS- RESP PCR PANEL NOT DETECTED; C. PNEUMONIAE- RESP PCR PANEL NOT DETECTED; CORONAVIRUS 229E-RESP PCR NOT DETECTED; CORONAVIRUS HKU1-RESP PCR NOT DETECTED; CORONAVIRUS NL63-RESP PCR NOT DETECTED; CORONAVIRUS OC43-RESP PCR NOT DETECTED; HUMAN METAPNEUMOVIRUS NOT DETECTED; INFLUENZA A- RESP PCR PANEL NOT DETECTED; INFLUENZA B - RESP PCR PANEL NOT DETECTED; M. PNEUMONIAE- RESP PCR PANEL NOT DETECTED; PARAINFLUENZA VIRUS 1 NOT DETECTED; PARAINFLUENZA VIRUS 2 NOT DETECTED; PARAINFLUENZA VIRUS 3 NOT DETECTED; PARAINFLUENZA VIRUS 4 NOT DETECTED; RHINOVIRUS/ENTEROVIRUS DETECTED; RSV- RESP PCR PANEL NOT DETECTED; SARS-CoV-2 -RESP PCR PANEL NOT DETECTED
[2022-08-24] MEDS ORDERED: AMOX/CLAV 875 MG/125 MG TABLET PO STA (10:02)
[2022-08-24] MEDS ORDERED: ALBUTEROL NEB 2.5 MG/3 ML INH STA (10:02)
[2022-08-24] MEDS ORDERED: ONDANSETRON 4 MG/2 ML VIAL IVP PRN (13:12)
[2022-08-24] MEDS ORDERED: ACETAMINOPHEN 325 MG TABLET PO PRN (13:12)
[2022-08-24] MEDS ORDERED: IPRATROPIUM/ALBUTEROL 3 ML NEB INH PRN (13:14)
[2022-08-24] MEDS ORDERED: NICOTINE 14 MG PATCH TOP STA (13:15)
[2022-08-24] MEDS ORDERED: LORazepam 2 MG/ML VIAL IVP PRN (13:17)
--- NOTE | 2022-08-24 13:22 | HISTORY & PHYSICAL EXAMINATION ---
Chief Complaint - Chief Complaint Chief Complaint: SOA, cough, sweats and poss fevers History of Present Illness - Admitted From Admitted From:: ED - History Obtained From History obtained from: ED provider and the patient - History of Present Illness HPI Comment/Other: This is a 66-year-old female with a history of asthma/COPD, she is an ex-smoker who quit recently but still occasionally smokes cigarettes socially. The patient is not on home O2, and does not have a nebulizer. The patient was recently on a week long trip with friends to [facility]. She says she was exposed to friends and family members with URIs but also had exposure in the airport and other locations, standing in many queues she visited. She started to feel congestion and a cough after she arrived home. She then experienced several days of muscle aches and sweats, so she thought she had a fever but did not measure it. She got more short of breath and more weak over the past several days, spent time on the couch. She increased the use of her inhalers but this did not help her symptoms. Tessalon perles have been prescribed in the past and she tried that and it did not work. There were no gastrointestinal symptoms. Today her spouse also started to get a URI and similar symptoms. Because of significant air hunger, she presented to the emergency room today. In the ER she was found to have O2 sat of 88% on room air and was tachypneic. A chest x-ray did not show any infiltrates. Her white blood count is 9.4 and Lactic Acid level was not done but bilirubin elevated at 1.5. Her respiratory panel is negative for COVID but positive for RSV. She received a nebulizer treatment and had some improvement, became less tachypneic. She was also started on supplemental oxygen. The ED provider spoke to me about this patient to put her on the Hospitalist service for further management of a COPD exacerbation causing hypoxia, from an RSV infection. I discussed RODO CONNELLY wishes with this patient and she wants to be a Full Code. 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 She has no natural children. Living arrangement: At home Living Situation: With spouse/s.o. 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 She used to smoke under 1 pack a day for many years, she quit last year however resumed smoking again at her same level "socially" which she did a lot of on the trip with her friends 1 week ago. He drinks occasional alcohol, possibly 4 times per week. - POLST Patient has POLST: No Meds/Allgy - Home Medications Home Medications: Ambulatory Orders Medication Instructions Recorded Confirmed Albuterol Sulf [Ventolin Hfa 1 - 2 puffs INH Q4HR PRN #1 inhaler 02/14/19 08/24/22 Inhaler] Propranolol [Inderal] 40 mg PO BID 10/24/21 08/24/22 Carbidopa/Levodopa 1 each PO BID 05/04/22 08/24/22 [Carbidopa-Levodopa 25-100 Tab] Aspirin [Greg] 1 tab PO DAILY 08/24/22 08/24/22 Beclomethasone Dipropionate [Qvar 2 puffs PO BID 08/24/22 08/24/22 Redihaler (40 mcg)] Carboxymethylcellulose 1% Opht 1 drops EACHEYE PRN PRN 08/24/22 08/24/22 [Refresh 1% Ophth Drops] Multivitamin with Minerals 1 tab PO DAILY 08/24/22 08/24/22 [Multivitamins with Minerals] - Allergies Allergies/Adverse Reactions: Allergies Allergy/AdvReac Type Severity Reaction Status Date / Time clindamycin Allergy Rash Verified 08/24/22 07:24 Review of Systems - Constitutional Constitutional: reports: Fatigue, Weakness, Night sweats - Respiratory Respiratory: reports: Cough, Wheezing, SOB at rest, SOB with exertion - All Other Systems All Other Systems: reports: Reviewed and negative Exam - Vital Signs Reviewed Vital Signs: Yes Vital Signs: Vital Signs x48h Temp Pulse Resp BP Pulse Ox O2 Flow Rate 08/24/22 13:02 93 22 137/112 H 94 2 08/24/22 11:00 87 20 130/74 2 L 08/24/22 10:17 76 20 08/24/22 09:30 88 L 08/24/22 08:06 81 22 149/79 H 94 2 08/24/22 07:48 77 16 08/24/22 07:19 36.8 C 92 21 186/160 H 89 L - Physical Exam General Appearance: positive: Alert, Mild distress (She is able to speak in complete sentences but has frequent coughing spasms which are unproductive) Eyes Bilateral: positive: Normal inspection, EOMI ENT: positive: ENT inspection nml, No signs of dehydration Neck: positive: Nml inspection, No JVD Respiratory: positive: Wheezes (Poor air movement, scattered wheezing in all lung benson posterior) Cardiovascular: positive: Regular rate & rhythm, No murmur Abdomen: positive: Non-tender, Nml bowel sounds, No distention Skin: positive: Warm, Dry Extremities: positive: Non-tender, No pedal edema Neurologic/Psychiatric: positive: Oriented x3, CN's nml (2-12) Conclusion/Plan - Problem List (1) Acute respiratory failure with hypoxia Conclusion/Plan: With patient has been short of breath for about 2 days. She presented to the ER and her room air saturation is documented at 88% Plan: We will give supplemental O2, target saturations will be greater than 88%, and this COPD ER We will treat the underlying problem, her COPD exacerbation. On the day of discharge she will likely need an oximetry walk test to see if she needs a new order for home oxygen (2) COPD exacerbation Conclusion/Plan: The patient has a history of COPD, she is on inhalers at home but not on oxygen, does not have a nebulizer machine She tested positive for RSV which is likely the cause of this exacerbation Plan: Place the patient in Observation status. Respiratory/droplet isolation will be ordered Begin treatment for a COPD exacerbation with as needed nebulizers and scheduled 4 times daily nebulizers Begin Mucinex for pulmonary toilet Begin nighttime montelukast in COPD, and she may be discharged on this (3) RSV infection Conclusion/Plan: As per testing (al l labs were reviewed) Plan: Respiratory/droplet isolation will be ordered (4) Tremor Conclusion/Plan: As per history. Patient says this is not Parkinson's disease. She reports being on carbidopa/levodopa previously and now takes a medicine called Dali and also takes Propranolol. Plan: We will continue with her usual propranolol, and pt's own med (Dali), once her medication list and doses are reconciled by pharmacy (5) Tobacco use Conclusion/Plan: As per history Plan: We will order nicotine patch We will promote smoking cessation given her history of COPD (6) Alcohol use Conclusion/Plan: I reviewed this EMR. States that she drinks and has a prior history of alcohol abuse. The last entry made by anesthesia in 05/05/2022 states that she takes 1 cocktail every night Plan: We will order CIWA protocol with as needed Ativan if needed We will start daily oral thiamine (7) Hypokalemia Conclusion/Plan: Possibly related to poor nutrition intake, since she is not on meds to cause K loss Plan: We will give potassium replacement either p.o. or IV Follow BMP daily - Lab Results Fish Bones: 08/24/22 07:42 08/24/22 07:42 - Diagnostic Imaging Results Diagnostic Imaging Results: positive: Final report reviewed
--- NOTE | 2022-08-24 14:32 | PHARMACY PROGRESS NOTE ---
- Best Possible Medication History Admit Date and Time: 08/24/22 1312 Processed by: Pharmacy Medication History completed: Yes Patient Interview: Completed Secondary Source(s): Pharmacy records As the person ultimately responsible for medication therapy, providers are able to order a medication from an existing home medication list in [facility] via the "Reconcile Routine" prior to Confirmation of that medication by instructional support services director. Such practice is discouraged except when the physician, in their clinical judgment, deems that a medical need exists for a medication without regard to previous use.
[2022-08-24] MEDS ORDERED: BENZOCAINE/MENTHOL LOZENGE MM PRN (14:47)
[2022-08-24] MEDS: methylPREDNISolone SUCCINATE 40 MG/ML VIAL IVP SCH ×2 (15:16→21:40)
[2022-08-24] MEDS: SODIUM CHLORIDE FLUSH 0.9% 10 ML SYRINGE IVP PRN ×2 (15:16→21:41)
[2022-08-24] MEDS: IPRATROPIUM/ALBUTEROL 3 ML NEB INH SCH ×2 (15:44→21:10)
[2022-08-24] MEDS: SODIUM CHLORIDE FLUSH 0.9% 10 ML SYRINGE IVP SCH (16:46)
[2022-08-24] MEDS: guaiFENesin/CODEINE 5 ML UDC PO PRN (20:33)
[2022-08-24] MEDS: MONTELUKAST 10 MG TABLET PO SCH (21:40)
[2022-08-24] MEDS: guaiFENesin 600 MG TABLET PO SCH (21:40)
[2022-08-25] MEDS: SODIUM CHLORIDE FLUSH 0.9% 10 ML SYRINGE IVP SCH ×3 (04:31→21:22)
[2022-08-25] MEDS: guaiFENesin/CODEINE 5 ML UDC PO PRN ×2 (04:56→21:22)
[2022-08-25] MEDS: methylPREDNISolone SUCCINATE 40 MG/ML VIAL IVP SCH ×3 (05:00→21:26)
[2022-08-25 05:05] LABS: BASOPHILS % (AUTO) 0.2 %; HCT - HEMATOCRIT 38.9 % (37.0-47.0); HGB - HEMOGLOBIN 13.2 g/dL (12.0-16.0); LYMPHOCYTES % (AUTO) 10.3 %; MEAN CORPUSCULAR HEMOGLOBIN 33.6 pg (27.0-31.0); MEAN CORPUSCULAR HGB CONC 33.9 g/dL (32.0-36.0); MEAN PLATELET VOLUME 9.5 fL (7.9-10.8); MONOCYTES # (AUTO) 0.2 10^3/uL (0.0-1.0); MONOCYTES % (AUTO) 2.4 %; NEUTROPHILS % (AUTO) 86.8 %; PLT - PLATELET COUNT 330 10^3/uL (130-450); RED BLOOD COUNT 3.93 10^6/uL (4.20-5.40); RED CELL DISTRIBUTION WIDTH 12.8 % (12.0-15.0); WHITE BLOOD COUNT 9.2 x10^3/uL (4.8-10.8)
[2022-08-25 05:18] LABS: ALBUMIN 3.5 g/dL (3.2-5.5); ALBUMIN/GLOBULIN RATIO 1.1 (1.0-2.2); BILIRUBIN,TOTAL 0.9 mg/dL (0.2-1.0); CREATININE 0.4 mg/dL (0.4-1.0); MAGNESIUM 2.1 mg/dL (1.7-2.8); POTASSIUM 3.4 mmol/L (3.5-5.0); TOTAL PROTEIN 6.6 g/dL (6.7-8.2)
[2022-08-25] MEDS: IPRATROPIUM/ALBUTEROL 3 ML NEB INH SCH ×4 (07:04→21:03)
[2022-08-25] MEDS: ENOXAPARIN 40 MG/0.4 ML SYRINGE SUBQ SCH (08:42)
[2022-08-25] MEDS: guaiFENesin 600 MG TABLET PO SCH ×2 (08:42→21:21)
[2022-08-25] MEDS: THIAMINE 100 MG TABLET PO SCH (08:42)
[2022-08-25] MEDS ORDERED: CARBOXYMETHYLCELLULOSE OPHTH DROPS EACHEYE PRN (09:24)
[2022-08-25] MEDS: ASPIRIN 325 MG TABLET PO SCH (10:25)
[2022-08-25] MEDS: CARBIDOPA/LEVODOPA 25 MG/100 MG TABLET PO SCH ×2 (10:25→21:21)
--- NOTE | 2022-08-25 12:29 | PROVIDER PROGRESS NOTE ---
Subjective - Prog Note Date Prog Note Date: 08/25/22 Prog Note Time: 12:27 - Subjective Pt reports feeling: Improved Subjective: She is cautious and tell me that she is better. Because she still coughing quite a bit, and very fatigued. Still wheezing. Current Medications - Current Medications Current Medications: Active Medications Acetaminophen (Acetaminophen 325 Mg Tablet) 650 mg PO Q4HR PRN PRN Reason: Pain 1 to 4, or Fever Albuterol/Ipratropium (Ipratropium/Albuterol 3 Ml Neb) 3 ml INH Q4HR PRN PRN Reason: Wheezing Albuterol/Ipratropium (Ipratropium/Albuterol 3 Ml Neb) 3 ml INH RTQID [facility] Last Admin: 08/25/22 11:03 Dose: 3 ml Aspirin (Aspirin 325 Mg Tablet) 325 mg PO DAILY [facility] Last Admin: 08/25/22 10:25 Dose: 325 mg Budesonide (Budesonide 0.5 Mg/2 Ml Neb) 0.5 mg INH RTBID [facility] Carbidopa/Levodopa (Carbidopa/Levodopa 25 Mg/100 Mg Tablet) 1 tab PO BID [facility] Last Admin: 08/25/22 10:25 Dose: 1 tab Carboxymethylcellulose (Carboxymethylcellulose Ophth Drops) 1 drops EACHEYE PRN PRN PRN Reason: Dry Eye Enoxaparin Sodium (Enoxaparin 40 Mg/0.4 Ml Syringe) 40 mg SUBQ DAILY [facility] Last Admin: 08/25/22 08:42 Dose: 40 mg Guaifenesin (Guaifenesin 600 Mg Tablet) 600 mg PO BID [facility] Last Admin: 08/25/22 08:42 Dose: 600 mg Guaifenesin/Codeine Phosphate (Guaifenesin/Codeine 5 Ml Udc) 5 ml PO Q6HR PRN PRN Reason: Cough Last Admin: 08/25/22 04:56 Dose: 5 ml Lorazepam (Lorazepam 2 Mg/Ml Vial) 1 mg IVP Q30M PRN; Protocol PRN Reason: CIWA >8 Methylprednisolone (Methylprednisolone Succinate 40 Mg/Ml Vial) 40 mg IVP TID [facility] Last Admin: 08/25/22 05:00 Dose: 40 mg Montelukast Sodium (Montelukast 10 Mg Tablet) 10 mg PO QPM [facility] Last Admin: 08/24/22 21:40 Dose: 10 mg Multivitamins/Minerals (Multivitamin W/Minerals Tablet) 1 tab PO DAILYWM [facility] Ondansetron HCl (Ondansetron 4 Mg/2 Ml Vial) 4 mg IVP Q6HR PRN PRN Reason: Nausea / Vomiting Propranolol HCl (Propranolol 40 Mg Tablet) 40 mg PO BID [facility] Sodium Chloride (Sodium Chloride Flush 0.9% 10 Ml Syringe) 10 ml IVP PRN PRN PRN Reason: NEEDED PER PROVIDER ORDERS Last Admin: 08/24/22 21:41 Dose: 10 ml Sodium Chloride (Sodium Chloride Flush 0.9% 10 Ml Syringe) 10 ml IVP 0100,0900,1700 [facility] Last Admin: 08/25/22 08:43 Dose: 10 ml Thiamine HCl (Thiamine 100 Mg Tablet) 100 mg PO DAILY [facility] Last Admin: 08/25/22 08:42 Dose: 100 mg Throat Lozenges (Benzocaine/Menthol Lozenge) 1 lozenge MM Q2HR PRN PRN Reason: Throat pain Propranolol [Inderal] 40 mg PO BID 10/24/21 Carbidopa/Levodopa [Carbidopa-Levodopa 25-100 Tab] 1 each PO BID 05/04/22 Aspirin [Greg] 1 tab PO DAILY 08/24/22 Beclomethasone Dipropionate [Qvar Redihaler (40 mcg)] 2 puffs PO BID 08/24/22 Carboxymethylcellulose 1% Opht [Refresh 1% Ophth Drops] 1 drops EACHEYE PRN PRN 08/24/22 Multivitamin with Minerals [Multivitamins with Minerals] 1 tab PO DAILY 08/24/22 Objective - Vital Signs/Intake & Output Reviewed Vital Signs: Yes Vital Signs: Vital Signs x48h Temp Pulse Pulse Resp BP Pulse Ox O2 Flow Rate 08/25/22 11:54 36.9 C 75 18 126/67 93 2 08/25/22 11:04 66 20 2 08/25/22 08:05 36.9 C 91 18 142/75 H 93 2 08/25/22 07:05 68 20 2 08/25/22 05:00 36.8 C 68 18 151/83 H 92 2 Intake & Output: Intake & Output 08/22/22 08/23/22 08/24/22 08/25/22 23:59 23:59 23:59 23:59 Intake Total 500 120 Balance 500 120 - Objective General Appearance: positive: No acute distress (Short statured, 45.5 kg), Alert, Other (Nasal tone of voice, cheerful, sitting up in bed without respiratory distress but does have spasmodic cough) Eyes Bilateral: positive: PERRL, EOMI ENT: positive: No signs of dehydration Neck: positive: No JVD. negative: Stiff neck Respiratory: positive: No respiratory distress (no use of acessory muscles, and is able to speak without sob, gets mendoza with getting up and to chair or commode), Wheezes (diffusely and faint), Rhonchi (anteriorly) Cardiovascular: positive: Regular rate & rhythm, Systolic murmur Abdomen: positive: Non-tender, No organomegaly, Nml bowel sounds, No distention Skin: positive: Warm, Dry Extremities: positive: Full ROM, No pedal edema Neurologic/Psychiatric: positive: Oriented x3, CN's nml (2-12), Motor nml - Lab Results Fish Bones: 08/25/22 04:57 08/25/22 04:57 Other Labs: Lab Results x24hrs 08/25/22 08/25/22 08/25/22 Range/Units 04:57 04:57 04:57 WBC 9.2 (4.8-10.8) x10^3/uL RBC 3.93 L (4.20-5.40) 10^6/uL Hgb 13.2 (12.0-16.0) g/dL Hct 38.9 (37.0-47.0) % MCV 99.0 (81.0-99.0) fL MCH 33.6 H (27.0-31.0) pg MCHC 33.9 (32.0-36.0) g/dL RDW 12.8 (12.0-15.0) % Plt Count 330 (130-450) 10^3/uL MPV 9.5 (7.9-10.8) fL Neut # (Auto) 8.0 H (1.5-6.6) 10^3/uL Lymph # (Auto) 1.0 L (1.5-3.5) 10^3/uL [place] # (Auto) 0.2 (0.0-1.0) 10^3/uL Eos # (Auto) 0.0 (0.0-0.7) 10^3/uL Baso # (Auto) 0.0 (0.0-0.1) 10^3/uL Absolute Nucleated RBC 0.00 x10^3/uL Nucleated RBC % 0.0 /100WBC PT 11.0 (9.9-12.6) secs INR 1.0 (0.8-1.2) Sodium 139 (135-145) mmol/L Potassium 3.4 L (3.5-5.0) mmol/L Chloride 102 (101-111) mmol/L Carbon Dioxide 29 (21-32) mmol/L Anion Gap 8.0 (6-13) BUN 18 (6-20) mg/dL Creatinine 0.4 (0.4-1.0) mg/dL Estimated GFR (MDRD) 160 (>89) Glucose 169 H (70-100) mg/dL Calcium 9.0 (8.5-10.3) mg/dL Magnesium 2.1 (1.7-2.8) mg/dL Total Bilirubin 0.9 (0.2-1.0) mg/dL AST 19 (10-42) IU/L ALT 17 (10-60) IU/L Alkaline Phosphatase 90 (42-121) IU/L Total Protein 6.6 L (6.7-8.2) g/dL Albumin 3.5 (3.2-5.5) g/dL Globulin 3.1 (2.1-4.2) g/dL Albumin/Globulin Ratio 1.1 (1.0-2.2) ABX Reporting Has patient been on IV antibiotics over the past 48 hours?: Yes Assessment/Plan - Problem List (1) Acute respiratory failure with hypoxia Impression: She presented to the ER with sob for 2 days and her room air saturation is documented at 88% Plan: Continue supplemental O2, target saturations will be greater than 88% Continue to treat the underlying problem, her COPD exacerbation. On the day of discharge she will likely need an oximetry walk test to see if she needs a new order for home oxygen Since she is OBV status and not ready for dc due to continued wheezing and mendoza, she will be changed to inpatient status (2) COPD exacerbation Conclusion/Plan: The patient has a history of COPD, she is on inhalers at home but not on oxygen, does not have a nebulizer machine She tested positive for RSV which is likely the cause of this exacerbation Plan: Respiratory/droplet isolation to continue Continue DuoNeb every 4 hours as needed on top of DuoNeb 4 times a day on a fixed scheduled dose. Continue Mucinex 600 mg p.o. twice daily, Robitussin-AC 5 mils p.o. every 6 hours as needed cough and Solu-Medrol 40 mg IV push 3 times daily. I am also continuing Singulair 10 mg p.o. every afternoon. (3) RSV infection Conclusion/Plan: found on PCR On Respiratory/droplet isolation (4) Tremor Conclusion/Plan: As per history. Patient says this is not Parkinson's disease. She reports being on carbidopa/levodopa previously and now takes a medicine called Dali and also takes Propranolol. Medication list has been reconciled by pharmacy. Patient would like to resume all of her usual medications and I have ordered carbidopa/levodopa 25574 twice daily, Inderal 40 mg p.o. twice daily. I have explained to her that the propranolol can sometimes be seen as contraindicated because of the albuterol. But we will continue to monitor her to make sure the albuterol states effective. She says that she is okay with stopping the propranolol if we have to but would really like the Sinemet resumed. (5) Tobacco use Conclusion/Plan: Continue nicotine patch, and continue recommendations for smoking cessation therapy/counseling (6) Alcohol use Conclusion/Plan: She is active drinker and has a prior history of alcohol abuse. The last entry made by anesthesia in 05/05/2022 states that she takes 1 cocktail every night Plan: On CIWA protocol with as needed Ativan if needed On daily oral thiamine 100 mg po daily (7) Hypokalemia Conclusion/Plan: Possibly related to poor nutrition intake, since she is not on meds to cause K loss Plan: She was 3.2 on admission. Received potassium 10 mEq in the emergency room. Repeat potassium is 3.4 this morning. I will supplement with 40 meq po now and at 16:00 Follow BMP daily
[2022-08-25] MEDS: BUDESONIDE 0.5 MG/2 ML NEB INH SCH (21:03)
[2022-08-25] MEDS: PROPRANOLOL 40 MG TABLET PO SCH (21:21)
[2022-08-25] MEDS: MONTELUKAST 10 MG TABLET PO SCH (21:21)
[2022-08-26] MEDS: SODIUM CHLORIDE FLUSH 0.9% 10 ML SYRINGE IVP SCH ×2 (01:06→08:12)
[2022-08-26] MEDS: IPRATROPIUM/ALBUTEROL 3 ML NEB INH SCH ×2 (05:18→10:50)
[2022-08-26] MEDS: BUDESONIDE 0.5 MG/2 ML NEB INH SCH (05:18)
[2022-08-26] MEDS: methylPREDNISolone SUCCINATE 40 MG/ML VIAL IVP SCH ×2 (05:19→13:40)
[2022-08-26] MEDS ORDERED: POTASSIUM CHLORIDE 20 MEQ TABLET PO ONE (07:02)
[2022-08-26 07:31] LABS: CALCIUM 8.9 mg/dL (8.5-10.3); CREATININE 0.4 mg/dL (0.4-1.0); POTASSIUM 3.8 mmol/L (3.5-5.0)
[2022-08-26 07:34] LABS: BASOPHILS % (AUTO) 0.1 %; HCT - HEMATOCRIT 38.5 % (37.0-47.0); HGB - HEMOGLOBIN 13.3 g/dL (12.0-16.0); LYMPHOCYTES % (AUTO) 8.3 %; MEAN CORPUSCULAR HEMOGLOBIN 34.6 pg (27.0-31.0); MEAN CORPUSCULAR HGB CONC 34.5 g/dL (32.0-36.0); MEAN CORPUSCULAR VOLUME 100.3 fL (81.0-99.0); MEAN PLATELET VOLUME 9.4 fL (7.9-10.8); MONOCYTES # (AUTO) 0.4 10^3/uL (0.0-1.0); MONOCYTES % (AUTO) 3.1 %; NEUTROPHILS # (AUTO) 10.3 10^3/uL (1.5-6.6); PLT - PLATELET COUNT 349 10^3/uL (130-450); RED BLOOD COUNT 3.84 10^6/uL (4.20-5.40); RED CELL DISTRIBUTION WIDTH 13.5 % (12.0-15.0); WHITE BLOOD COUNT 11.7 x10^3/uL (4.8-10.8)
[2022-08-26] MEDS ORDERED: MULTIVITAMIN W/MINERALS TABLET PO SCH (08:00)
[2022-08-26] MEDS: ASPIRIN 325 MG TABLET PO SCH (08:11)
[2022-08-26] MEDS: guaiFENesin 600 MG TABLET PO SCH (08:11)
[2022-08-26] MEDS: CARBIDOPA/LEVODOPA 25 MG/100 MG TABLET PO SCH (08:11)
[2022-08-26] MEDS: THIAMINE 100 MG TABLET PO SCH (08:11)
[2022-08-26] MEDS: PROPRANOLOL 40 MG TABLET PO SCH (08:11)
[2022-08-26 08:12] VITALS: BP 153/62
[2022-08-26] MEDS: ENOXAPARIN 40 MG/0.4 ML SYRINGE SUBQ SCH (08:12)
--- NOTE | 2022-08-26 11:00 | Discharge Plan ---
Discharge Plan Problem Reviewed?: Yes Disposition: Home, Self Care Condition: Stable Prescriptions: methylPREDNISolone [Medrol Dose Pack] 1 each PO .PACKAGEINSTRUCTIONS 6 Days #1 each Montelukast [Singulair] 10 mg PO QPM #30 tab Thiamine [Vitamin B-1] 100 mg PO DAILY #30 tab Diet: Regular Activity Restrictions: Activity as Tolerated Shower Restrictions: No Driving Restrictions: No Health Concerns: You already have what we feel is COPD. You take an inhaler to relax your lungs as well as an inhaled steroid to help with inflammation in your lungs. Unfortunately you developed an infection with respiratory syncytial virus. It gave you severe exacerbation of your COPD. You have gotten better by our inhalers, intravenous steroids, inhaled steroids. Initially required oxygen, now you do not. We feel you are stable to go home. Plan of Treatment: Resume your usual inhaled steroid called Qvar. And resume your albuterol. Try and use it 3 times a day when you first get home and then transition to as needed. While you were here we noticed that you had a folic acid deficiency and I am going to be giving you folic acid once a day for the next 30 days. You are also on a multivitamin. Please see your primary care provider in follow-up in the next 1 to 2 weeks. Care Goals: To have this current exacerbation resolved without any more wheezing or shortness of breath Assessment: Patient is alert, oriented, able to complete activities of daily living and promises to follow through on follow-up No Smoking: If you smoke, Please STOP! Call for help. Follow-up with: Rohit Beasley MD [Primary Care Provider] -
--- NOTE | 2022-08-26 11:11 | DISCHARGE SUMMARY ---
"Discharge Summary Admit Date: 08/24/22 Discharge Date: 08/26/22 Discharging Provider: Tonie Al MD Primary Care Provider: Rohit Beasley MD Code Status: Attempt Resuscitation Condition at Discharge: Stable Discharge Disposition: 01 Home, Self Care - DIAGNOSES Discharge Diagnoses with Status of Each Condition: 1. Acute respiratory failure with hypoxia 2. COPD with exacerbation 3. RSV infection 4. Essential tremor 5. Tobacco use 6. Alcohol use 7. Hypokalemia - HPI History of Present Illness: This is a 66-year-old female with a history of asthma/COPD, she is an ex-smoker who quit recently but still occasionally smokes cigarettes socially. The patient is not on home O2, and does not have a nebulizer. The patient was recently on a week long trip with friends to [facility]. She says she was exposed to friends and family members with URIs but also had exposure in the airport and other locations, standing in many queues she visited. She started to feel congestion and a cough after she arrived home. She then experienced several days of muscle aches and sweats, so she thought she had a fever but did not measure it. She got more short of breath and more weak over the past several days, spent time on the couch. She increased the use of her inhalers but this did not help her symptoms. Tessalon perles have been prescribed in the past and she tried that and it did not work. There were no gastrointestinal symptoms. Today her spouse also started to get a URI and similar symptoms. Because of significant air hunger, she presented to the emergency room today. In the ER she was found to have O2 sat of 88% on room air and was tachypneic. A chest x-ray did not show any infiltrates. Her white blood count is 9.4 and Lactic Acid level was not done but bilirubin elevated at 1.5. Her respiratory panel is negative for COVID but positive for RSV. She received a nebulizer treatment and had some improvement, became less tachypneic. She was also started on supplemental oxygen. The ED provider spoke to me about this patient to put her on the Hospitalist service for further management of a COPD exacerbation causing hypoxia, from an RSV infection. I discussed RODO CONNELLY wishes with this patient and she wants to be a Full Code. 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 No focal infiltrate or pneumothorax. Right lung is completely clear. - HOSPITAL COURSE Hospital Course: She was placed on inhaled nebulized solutions, inhaled steroids and inhaled br onchodilators. She initially required 2 L of nasal cannula to oxygenate. By the day before discharge she was able to be on room air in the late afternoon. She continued being stable off oxygen. She continues to have occasional coughing with phlegm production, and chest congestion. Wheezing was constant the first day or 2 and gradually tapered off. There is still an occasional faint wheeze on lung exam. But no severe respiratory distress. No antibiotics were used. She was sent home on her usual home meds without any change. Additions included thiamine 100 mg daily for history of alcohol use. While she was in the hospital A multivitamin as well as the thiamine was added. She did not require a nicotine patch. Her usual home meds for essential tremor were resumed. I did warn her that propranolol could negate the effects of the albuterol. On the day of discharge temperature was 36.5, heart rate was 53. Blood pressure 153/62. Respirations 18. 92% on room air. She is 5 foot 1 inch tall, 45.5 kg. Still has a slightly nasal tone to voice, and a infrequent phlegmy/bronchitic cough. But no respiratory distress. Lungs had rhonchi that cleared with a deep cough. No wheezing. No use of accessory muscles. Regular rate and rhythm. Soft abdomen that was nontender. Normal bowel sounds. Extremities without edema. She is ambulating in room without assistance. I will be sending her home with tapered Medrol Dosepak. I am asking her to see her primary care provider in the next 1 to 2 weeks.Greater than 30 minutes was spent coordinating discharge. This document was made in part using voice recognition software. While efforts are made to proofread this document, sound alike and grammatical errors may occur. - ALLERGIES Allergies/Adverse Reactions: Allergies Allergy/AdvReac Type Severity Reaction Status Date / Time clindamycin Allergy Rash Verified 08/24/22 07:24 - MEDICATIONS Home Medications: Ambulatory Orders Medication Instructions Recorded Confirmed Albuterol Sulf [Ventolin Hfa 1 - 2 puffs INH Q4HR PRN #1 inhaler 02/14/19 08/24/22 Inhaler] Propranolol [Inderal] 40 mg PO BID 10/24/21 08/24/22 Carbidopa/Levodopa 1 each PO BID 05/04/22 08/24/22 [Carbidopa-Levodopa 25-100 Tab] Aspirin [Greg] 1 tab PO DAILY 08/24/22 08/24/22 Beclomethasone Dipropionate [Qvar 2 puffs PO BID 08/24/22 08/24/22 Redihaler (40 mcg)] Carboxymethylcellulose 1% Opht 1 drops EACHEYE PRN PRN 08/24/22 08/24/22 [Refresh 1% Ophth Drops] Multivitamin with Minerals 1 tab PO DAILY 08/24/22 08/24/22 [Multivitamins with Minerals] Montelukast [Singulair] 10 mg PO QPM #30 tab 08/26/22 Thiamine [Vitamin B-1] 100 mg PO DAILY #30 tab 08/26/22 guaiFENesin [Mucinex] 600 mg PO BID tab 08/26/22 methylPREDNISolone [Medrol Dose 1 each PO .PACKAGEINSTRUCTIONS 6 08/26/22 Pack] Days #1 each - LABS Result Diagrams: 08/26/22 07:16 08/26/22 07:16"
== END 2022-08-26 14:10 | disposition home or self-care (01) | DRG 189 ==
LOC: EDUNIT# → ED 07:14 → MS2 13:12 → OBSVTOIN 08-25 15:48
PROVIDERS: ADMIT Internal Medicine; ATTEND Specialist
DX: J96.01 Acute respiratory failure with hypoxia (principal); J06.9 Acute upper respiratory infection, unspecified; J44.1 Chronic obstructive pulmonary disease with (acute) exacerbation; B97.89 Other viral agents as the cause of diseases classified elsewhere; Z20.822 Contact with and (suspected) exposure to COVID-19; B97.4 Respiratory syncytial virus as the cause of diseases classified elsewhere; R25.1 Tremor, unspecified; F17.200 Nicotine dependence, unspecified, uncomplicated; G25.0 Essential tremor; F17.210 Nicotine dependence, cigarettes, uncomplicated; E87.6 Hypokalemia; F10.11 Alcohol abuse, in remission; I10 Essential (primary) hypertension
CPT/HCPCS: 36415; 71045; 80048; 80053; 83690; 83735; 83880; 85025; 85610; 87633; 93005; 94640; 94664; 96374; 99284; 99285; A9270; G0378; J1650; J7626

== ENCOUNTER 2022-09-09 13:47 | Emergency (ER) | payer MEDICARE, OTHER ==
[2022-09-09] MEDS ORDERED: SODIUM CHLORIDE 0.9% 1,000 ML IV STA (14:08)
[2022-09-09] MEDS ORDERED: ONDANSETRON 4 MG/2 ML VIAL IVP STA (14:08)
[2022-09-09] MEDS ORDERED: HYDROmorphone 1 MG/ML CARPUJECT IVP STA ×2 (14:08→15:16)
--- NOTE | 2022-09-09 14:15 | ED Physician Documentation ---
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 : None HEENT: None Psych: None Musculoskeletal: None Derm: None - Past Surgical History Past Surgical History: No - Present Medications Home Medications: Ambulatory Orders Medication Instructions Recorded Confirmed Albuterol Sulf [Ventolin Hfa 1 - 2 puffs INH Q4HR PRN #1 inhaler 02/14/19 08/24/22 Inhaler] Propranolol [Inderal] 40 mg PO BID 10/24/21 08/24/22 Carbidopa/Levodopa 1 each PO BID 05/04/22 08/24/22 [Carbidopa-Levodopa 25-100 Tab] Aspirin [Greg] 1 tab PO DAILY 08/24/22 08/24/22 Beclomethasone Dipropionate [Qvar 2 puffs PO BID 08/24/22 08/24/22 Redihaler (40 mcg)] Carboxymethylcellulose 1% Opht 1 drops EACHEYE PRN PRN 08/24/22 08/24/22 [Refresh 1% Ophth Drops] Multivitamin with Minerals 1 tab PO DAILY 08/24/22 08/24/22 [Multivitamins with Minerals] Montelukast [Singulair] 10 mg PO QPM #30 tab 08/26/22 Thiamine [Vitamin B-1] 100 mg PO DAILY #30 tab 08/26/22 guaiFENesin [Mucinex] 600 mg PO BID tab 08/26/22 methylPREDNISolone [Medrol Dose 1 each PO .PACKAGEINSTRUCTIONS 6 08/26/22 Pack] Days #1 each - Allergies Allergies/Adverse Reactions: Allergies Allergy/AdvReac Type Severity Reaction Status Date / Time clindamycin Allergy Rash Verified 09/09/22 13:57 - Social History Does the pt smoke?: No Smoking Status: Current some day smoker Does the pt drink ETOH?: Yes Does the pt have substance abuse?: Yes - Immunizations Immunizations are current?: No Immunizations: Other immun not current - POLST Patient has POLST: No Results - Vitals Vitals: Vital Signs - 24 hr 09/09/22 09/09/22 13:54 14:03 Temperature 36.5 C Heart Rate 109 H Respiratory 20 17 Rate Blood Pressure 159/92 H O2 Saturation 99 Oxygen O2 Source Room air
[2022-09-09] MEDS ORDERED: iohexoL-300 100 ML VIAL ONE (14:16)
[2022-09-09 14:17] LABS: BASOPHILS # (AUTO) 0.1 10^3/uL (0.0-0.1); BASOPHILS % (AUTO) 0.6 %; EOSINOPHILS # (AUTO) 0.1 10^3/uL (0.0-0.7); EOSINOPHILS % (AUTO) 1.1 %; HCT - HEMATOCRIT 41.4 % (37.0-47.0); HGB - HEMOGLOBIN 14.2 g/dL (12.0-16.0); LYMPHOCYTES # (AUTO) 2.1 10^3/uL (1.5-3.5); LYMPHOCYTES % (AUTO) 24.3 %; MEAN CORPUSCULAR HEMOGLOBIN 34.4 pg (27.0-31.0); MEAN CORPUSCULAR HGB CONC 34.3 g/dL (32.0-36.0); MEAN CORPUSCULAR VOLUME 100.2 fL (81.0-99.0); MEAN PLATELET VOLUME 9.4 fL (7.9-10.8); MONOCYTES # (AUTO) 0.6 10^3/uL (0.0-1.0); MONOCYTES % (AUTO) 6.8 %; NEUTROPHILS # (AUTO) 5.9 10^3/uL (1.5-6.6); NEUTROPHILS % (AUTO) 66.7 %; PLT - PLATELET COUNT 246 10^3/uL (130-450); RED BLOOD COUNT 4.13 10^6/uL (4.20-5.40); RED CELL DISTRIBUTION WIDTH 12.7 % (12.0-15.0); WHITE BLOOD COUNT 8.8 x10^3/uL (4.8-10.8)
--- NOTE | 2022-09-09 14:18 | ED Physician Documentation ---
History of Present Illness - Stated complaint Stated Complaint: FALL,PX - Chief complaint Chief Complaint: Abd Pain - Additonal information Additional information: 66-year-old female presents to the emergency department for evaluation of acute left lower quadrant abdominal pain. Reports a mechanical fall on the . She just entered her house and was bending over to take her shoes off when her kitten tried to run between her legs. She wanted to stop him from running outside and she subsequently fell backwards on her left side against the stairs. Did not strike her head and there was no loss of consciousness. Since then she has been unable to have a bowel movement and she has focal pain in the left lower quadrant of the abdomen. States she has a history of diverticulitis and this feels similar. She is denying pain in her low back or hips. Denies melena or hematochezia. No fevers. Patient was recently admitted to this hospital on August 24 for a COPD exacerbation. She was subsequently discharged with a tapered Medrol Dosepak. Review of Systems Constitutional: denies: Fever, Chills Respiratory: reports: Reviewed and negative GI: reports: Abdominal Pain, Constipation. 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 : None HEENT: None Psych: None Musculoskeletal: None Derm: None - Past Surgical History Past Surgical History: No - Present Medications Home Medications: Ambulatory Orders Medication Instructions Recorded Confirmed Albuterol Sulf [Ventolin Hfa 1 - 2 puffs INH Q4HR PRN #1 inhaler 02/14/19 09/09/22 Inhaler] Propranolol [Inderal] 40 mg PO BID 10/24/21 09/09/22 Carbidopa/Levodopa 1 each PO BID 05/04/22 09/09/22 [Carbidopa-Levodopa 25-100 Tab] Aspirin [Greg] 1 tab PO DAILY 08/24/22 09/09/22 Beclomethasone Dipropionate [Qvar 2 puffs PO BID 08/24/22 09/09/22 Redihaler (40 mcg)] Carboxymethylcellulose 1% Opht 1 drops EACHEYE PRN PRN 08/24/22 09/09/22 [Refresh 1% Ophth Drops] Multivitamin with Minerals 1 tab PO DAILY 08/24/22 09/09/22 [Multivitamins with Minerals] Montelukast [Singulair] 10 mg PO QPM #30 tab 08/26/22 09/09/22 Thiamine [Vitamin B-1] 100 mg PO DAILY #30 tab 08/26/22 09/09/22 guaiFENesin [Mucinex] 600 mg PO BID tab 08/26/22 09/09/22 methylPREDNISolone [Medrol Dose 1 each PO .PACKAGEINSTRUCTIONS 6 08/26/22 09/09/22 Pack] Days #1 each HYDROcod/ACETAM 5/325 [[place] 5/325] 1 tablet PO BID PRN #2 tablet 09/09/22 polyethylene glycoL 3350(BULK) 17 gm PO DAILY PRN #1 each 09/09/22 [Miralax] - Allergies Allergies/Adverse Reactions: Allergies Allergy/AdvReac Type Severity Reaction Status Date / Time clindamycin Allergy Rash Verified 09/09/22 13:57 - Social History Does the pt smoke?: No Smoking Status: Current some day smoker Does the pt drink ETOH?: Yes Does the pt have substance abuse?: Yes - Immunizations Immunizations are current?: No Immunizations: Other immun not current - POLST Patient has POLST: No PD ED PE NORMAL - General General: Alert and oriented X 3, Well developed/nourished (Appears older than stated age). No: No acute distress (Appears to be uncomfortable and in pain.) - Cardiac Cardiac: RRR, No murmur, Strong equal pulses, Other (Large left lateral rib wall scar reportedly secondary to a empyema 15 years ago) - Respiratory Respiratory: No respiratory distress, Clear bilaterally - Abdomen Abdomen: Normal bowel sounds, Soft. No: Non tender (Focal tenderness to the left lower quadrant of the abdomen with guarding.) - Back Back: No spinal TTP (No midline tenderness elicited with palpation of the cervical thoracic or lumbar vertebrae. No ecchymosis, step-off crepitus or deformity) - Derm Derm: Normal color, Warm and dry, No rash - Extremities Extremities: No deformity - Neuro Neuro: Alert and oriented X 3, stamping mill tender 2-12 intact Eye Opening: Spontaneous Motor: Obeys Commands Verbal: Oriented GCS Score: 15 Results - Vitals Vitals: Vital Signs - 24 hr 09/09/22 09/09/22 09/09/22 13:54 14:03 14:26 Temperature 36.5 C Heart Rate 109 H 92 Respiratory 20 17 16 Rate Blood Pressure 159/92 H 165/98 H O2 Saturation 99 97 09/09/22 09/09/22 14:28 16:19 Temperature Heart Rate 91 Respiratory 16 17 Rate Blood Pressure 141/78 H O2 Saturation 96 Oxygen O2 Source Room air - Labs Labs: Laboratory Tests 09/09/22 09/09/22 09/09/22 14:10 14:10 15:07 WBC 8.8 RBC 4.13 L Hgb 14.2 Hct 41.4 MCV 100.2 H MCH 34.4 H MCHC 34.3 RDW 12.7 Plt Count 246 MPV 9.4 Neut # (Auto) 5.9 Lymph # (Auto) 2.1 [place] # (Auto) 0.6 Eos # (Auto) 0.1 Baso # (Auto) 0.1 Absolute Nucleated RBC 0.00 Nucleated RBC % 0.0 Sodium 139 Potassium 3.3 L Chloride 100 L Carbon Dioxide 21 Anion Gap 18.0 H BUN 15 Creatinine 0.5 Estimated GFR (MDRD) 123 Glucose 80 Calcium 9.1 Total Bilirubin 1.4 H AST 34 ALT 19 Alkaline Phosphatase 81 Total Protein 7.0 Albumin 4.0 Globulin 3.0 Albumin/Globulin Ratio 1.3 Lipase 26 Urine Color YELLOW Urine Clarity HAZY Urine pH 6.0 Ur Specific [place] >=1.030 H Urine Protein NEGATIVE Urine Glucose (UA) NEGATIVE Urine Ketones 40 H Urine Occult Blood NEGATIVE Urine Nitrite POSITIVE H Urine Bilirubin NEGATIVE Urine Urobilinogen 0.2 (NORMAL) Ur Leukocyte Esterase SMALL H Urine RBC 0-5 Urine WBC >25 H Ur Squamous Epith Cells MANY Squamous H Urine Bacteria Moderate H Urine Yeast PRESENT Ur Microscopic Review INDICATED Urine Culture Comments NOT INDICATED - Rads (name of study) Ct abd Relevant Findings:: Final report received (Distal gastric wall thickening which may indicate gastritis. No definite gastric wall mass. Suggestion of circumferential wall thickening involving the distal ascending colon/hepatic flexure with narrowing of the lumen. Finding could represent colitis versus circumferential colonic wall mass.), Other (No evidence of bowel obstruction. Significant fecal stasis in the ascending colon. No free fluid or free air) PD Medical Decision Making - ED course Complexity details: reviewed results, re-evaluated patient, considered differential, d/w patient ED course: 66-year-old female presents emergency department for evaluation of 5 days of left lower abdominal pain. She also reports no bowel movement for that duration. She has been taking ibuprofen for the pain after she fell against a staircase also 5 days ago. Clinically on exam there was no midline back or hip or pelvic tenderness elicited. I did obtain a CBC and electrolytes. Per my interpretation no acute worrisome findings. Her urinalysis is nitrite positive and has fair amount of blood and bacteria but meets no other markers for infection. Likely contamination. Patient denies any urinary urgency frequency or dysuria. Subsequently a CT of the abdomen was completed. It does show significant fecal stasis involving the a sending colon. There was also some findings to suggest gastric wall thickening which may be gastritis in the setting of ibuprofen use. Finally there was circumferential wall thickening of the A sending colon hepatic flexure with narrowing of the lumen. I discussed with the patient this finding. She states to me that she did undergo a colonoscopy in July at [facility]. There were 4 colon polyps that were removed and per patient were precancerous. I briefly discussed the case with Dr. Lambert surgeon on-call. She would recomm end the patient be given MiraLAX as a laxative given the amount of colonic obstipation. I discussed the plan and findings with the patient. She will take the MiraLAX at home. She is requesting 1 or 2 Vicodin tablets for pain as she states has been unbearable over the last few days. Patient is scheduled to see Dr. Duffy in follow-up tomorrow which she is requested to keep this appointment. She is discharged home in stable condition. The usual emergent return precautions were discussed. I am prescribing a short course of short-acting opioid pain medication for this patient. 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 I have discussed that the opioids are for short term therapy only, and will not be refilled from the ED. Departure - Departure Disposition: 01 Home, Self Care Clinical Impression: Left lower quadrant abdominal pain Constipation Qualifiers: Constipation type: other constipation type Qualified Code(s): K59.09 - Other constipation Condition: Stable Record reviewed to determine appropriate education?: Yes Instructions: ED Constipation Follow-Up: Rohit Montelongo MD [Primary Care Provider] - Prescriptions: polyethylene glycoL 3350(BULK) [Miralax] 17 gm PO DAILY PRN #1 each PRN Reason: Constipation HYDROcod/ACETAM 5/325 [[place] 5/325] 1 tablet PO BID PRN #2 tablet PRN Reason: Pain Comments: You came to the emergency department today because for the last 5 days you have been having some pain on the left side of your abdomen. You were concerned you could have diverticulitis. This pain followed a fall at home. Today your CBC and electrolytes do not show any worrisome findings. We did do a CT of your abdomen and pelvis. You do have some findings that suggest gastritis or stomach inflammation. I recommend you discontinue the use of the ibuprofen as this may be making your upper abdominal pain worse. Please begin taking Protonix or omeprazole daily until the stomach pain improves. The CT of your abdomen does show that you have significant constipation involving all of your colon but most predominant on the right side. There was suggestion that there was circumferential colonic wall thickening on the right side of the abdomen which can sometimes be seen in people that have colon masses or cancer. You reported to me that you had a colonoscopy in July of this year. I encourage you to discuss this ED visit with Dr. montelongo tomorrow to determine if you would benefit from a repeat colonoscopy. In order to help manage your pain I have sent a prescription for 2 Vicodin tablets to the [facility] pharmacy. However your pain will persist until you have large adequate bowel movements. Please fill the prescription for the MiraLAX and take 2 glass fulls a day until you have 4 or 5 watery bowel movements. Return to the ER if you develop any worsening symptoms, have fevers, black or bloody stools.
[2022-09-09 14:31] LABS: ALBUMIN/GLOBULIN RATIO 1.3 (1.0-2.2); BILIRUBIN,TOTAL 1.4 mg/dL (0.2-1.0); CALCIUM 9.1 mg/dL (8.5-10.3); CREATININE 0.5 mg/dL (0.4-1.0); POTASSIUM 3.3 mmol/L (3.5-5.0)
[2022-09-09 15:14] LABS: BILIRUBIN,URINE NEGATIVE (NEGATIVE); GLUCOSE, URINE (UA) NEGATIVE (NEGATIVE); KETONES,URINE (UA) 40 mg/dL (NEGATIVE); LEUKOCYTE ESTERASE, URINE SMALL (NEGATIVE); NITRITE,URINE POSITIVE (NEGATIVE); OCCULT BLOOD,URINE NEGATIVE (NEGATIVE); PROTEIN,URINE NEGATIVE (NEGATIVE); UROBILINOGEN,URINE 0.2 (NORMAL) E.U./dL (NORMAL)
[2022-09-09 15:15] LABS: CLARITY,URINE HAZY (CLEAR)
[2022-09-09 15:23] LABS: BACTERIA,URINE Moderate /HPF (None Seen); RBC,URINE 0-5 /HPF (0-5); SQUAMOUS EPITHELIAL CELL,UR MANY Squamous (<= Few); WBC,URINE >25 /HPF (0-5)
[2022-09-09 15:24] LABS: YEAST,URINE PRESENT
[2022-09-09] MEDS ORDERED: iohexoL-300 100 ML VIAL IVP ONE (15:27)
--- NOTE | 2022-09-09 15:48 | CT Report ---
PROCEDURE: ABDOMEN/PELVIS W INDICATIONS: Abdominal pain, acute; pain after fall CONTRAST: 100ml Omnipaque 300 TECHNIQUE: After the administration of IV contrast, 5 mm thick sections acquired from the diaphragms to the symp hysis. 5 mm thick coronal and sagittal reformats were acquired. For radiation dose reduction, the f ollowing was used: automated exposure control, adjustment of mA and/or kV according to patient size. COMPARISON: None. FINDINGS: Image quality: Excellent. Lung bases and heart: Linear scarring/atelectasis in bilateral lung bases are seen. Heart size is nor mal, no pericardial effusion. Liver: Unremarkable. Gallbladder and biliary tree: Gallbladder is within normal limits. No gross biliary ductal dilatation . Spleen: Unremarkable. Pancreas: Unremarkable. Adrenals: Unremarkable. Kidneys and ureters: Bilateral kidneys are normal in size and enhancement. No hydronephrosis or nephr olithiasis. No hydroureter.. Bowel and peritoneum: Distal gastric wall thickening is noted. There is no bowel obstruction. Signifi cant fecal stasis in the ascending colon is seen with questionable wall thickening involving the hepa tic flexure with narrowing of the lumen.. Appendix is visualized in right lower quadrant abdomen and is within normal limits. No abscess collection. Lymph nodes: No central or retroperitoneal adenopathy. Vessels: Mild to moderate atherosclerotic calcifications in the abdominal aorta is seen. No aortic an eurysm. IVC is normal in size.. PELVIS Reproductive organs: Calcified uterine fibroids are seen. No gross abnormality is seen in bilateral a dnexa.. Bladder: Unremarkable. Lymph nodes: Unremarkable. Bones: No aggressive osseous abnormality. Other: None. IMPRESSION: 1. Distal gastric wall thickening which may indicate gastritis. No definite gastric wall mass. 2. Suggestion of circumferential wall thickening involving distal ascending colon/hepatic flexure wit h narrowing of the lumen. Finding could represent colitis versus circumferential colonic wall mass ramsey ggests clinical and possible endoscopic correlation. No evidence of bowel obstruction. Significant fe paul stasis in the ascending colon. No free fluid of free air. Reviewed by: Karsten Pierce MD on 09/09/2022 3:47 PM PDT Approved by: Karsten Pierce MD on 09/09/2022 3:47 PM PDT Station ID: [id number]
[2022-09-09 16:20] VITALS: BP 141/78
== END 2022-09-09 16:47 | disposition home or self-care (01) ==
LOC: ED 13:47
DX: R10.32 Left lower quadrant pain (principal); K59.09 Other constipation; R93.3 Abnormal findings on diagnostic imaging of other parts of digestive tract; F17.200 Nicotine dependence, unspecified, uncomplicated
CPT/HCPCS: 36415; 74177; 80053; 81001; 83690; 85025; 96374; 96376; 99284; J1170; Q9967; 81003; 87086

== ENCOUNTER 2023-10-20 07:22 | Outpatient (CLI) | payer MEDICARE, OTHER | END 2023-10-20 23:51 | disposition critical access hospital (66) | LOC: EMS 07:22 | PROVIDERS: ATTEND Emergency Medicine | DX: I46.9 Cardiac arrest, cause unspecified (principal) | CPT/HCPCS: A0425; A0433 ==

== ENCOUNTER 2023-10-20 07:34 | Emergency (ER) | payer MEDICARE, OTHER ==
[2023-10-20] MEDS: methylPREDNISolone SUCCINATE 125 MG/2 ML VIAL IVP STA (07:44)
[2023-10-20] MEDS: PROPOFOL 1000 MG/100 ML 1,000 MG/100 ML BOTTLE IV STA (07:47)
--- NOTE | 2023-10-20 07:52 | ED Physician Documentation ---
PD HPI CPR - Stated complaint Stated Complaint: ROSC - History obtained from History obtained from: EMS - Additional information Additional information: 68-year-old female with history of COPD, hypertension presents by EMS from home for witnessed respiratory arrest. History is obtained from EMS as patient arrives intubated and sedated on versed. Per EMS the patient was in the bathroom when she called for her spouse. Spouse witnessed the patient collapse from the toilet onto the ground and began to do "[id number]". When fire department arrived the patient had no palpable pulse and CPR was initiated. A single shock was administered by an AED, but the shockable rhythm was not identified on the AED. EMS reports approximately 12 to 15 minutes of CPR on scene. Patient was intubated with 7-0 ET tube. Rhythm after ROSC sinus at approximately [address] elevations to suggest SC. Glucose 331. Per EMS no nebulizers given in route due to no compatible adapter in the truck. EMS did report patient had spontaneous movement on scene after ROSC and 10mg IV versed administered for sedation. On arrival patient was intubated, sedated, strong carotid pulse. Bilateral breath sounds present, but very restricted with poor air movement. 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 : None HEENT: None Psych: None Musculoskeletal: None Derm: None - Past Surgical History Past Surgical History: No - Present Medications Home Medications: Ambulatory Orders Medication Instructions Recorded Confirmed Albuterol Sulf [Ventolin Hfa 1 - 2 puffs INH Q4HR PRN #1 inhaler 02/14/19 10/20/23 Inhaler] Propranolol [Inderal] 40 mg PO BID 10/24/21 10/20/23 Carbidopa/Levodopa 1 each PO BID 05/04/22 10/20/23 [Carbidopa-Levodopa 25-100 Tab] Aspirin [Greg] 1 tab PO DAILY 08/24/22 10/20/23 Carboxymethylcellulose 1% Opht 1 drops EACHEYE PRN PRN 08/24/22 10/20/23 [Refresh 1% Ophth Drops] Multivitamin with Minerals 1 tab PO DAILY 08/24/22 10/20/23 [Multivitamins with Minerals] Thiamine [Vitamin B-1] 100 mg PO DAILY #30 tab 08/26/22 10/20/23 Fluticasone Propion/Salmeterol 1 inh INH PRN PRN 10/20/23 10/20/23 [Fluticasone-Salmeterol 250-50] Montelukast Sodium 1 tab PO DAILY 10/20/23 10/20/23 - Allergies Allergies/Adverse Reactions: Allergies Allergy/AdvReac Type Severity Reaction Status Date / Time clindamycin Allergy Rash Verified 10/20/23 08:47 - Social History Does the pt smoke?: No Smoking Status: Current some day smoker Does the pt drink ETOH?: Yes Does the pt have substance abuse?: Yes - Immunizations Immunizations are current?: No Immunizations: Other immun not current - POLST Patient has POLST: No PD ED PE NORMAL - Vitals Vital signs reviewed: Yes - General General: Other (GCS 3) - HEENT HEENT: PERRL, EOMI - Cardiac Cardiac: RRR, Strong equal pulses - Respiratory Respiratory: Other (intubated, poor air movement, expiratory wheezes) - Abdomen Abdomen: Soft, Non tender, Non distended - Derm Derm: Normal color, Warm and dry - Extremities Extremities: No deformity, No tenderness to palpate, No edema - Neuro Neuro: Other (GCS 3) Results - Vitals Vitals: Oxygen O2 Source Mechanical ventilator - Labs Labs: Microbiology 10/20/23 08:00 Blood Culture - Preliminary Blood - Left Hand NO GROWTH AFTER 2 DAYS 10/20/23 07:50 Blood Culture - Preliminary Blood - Right Hand NO GROWTH AFTER 2 DAYS Laboratory Tests 10/20/23 10/20/23 10/20/23 07:35 07:35 07:35 WBC 17.6 H RBC 3.62 L Hgb 12.8 Hct 38.5 MCV 106.4 H MCH 35.4 H MCHC 33.2 RDW 12.1 Plt Count 223 MPV 9.6 Neut # (Auto) Not Reportable Lymph # (Auto) Not Reportable [place] # (Auto) Not Reportable Eos # (Auto) Not Reportable Baso # (Auto) Not Reportable Absolute Nucleated RBC Not Reportable Total Counted 100 Band Neuts % (Manual) 5 Abnorm Lymph % (Manual) 0 Metamyelocytes % 1 H Myelocytes % 1 H Nucleated RBC % Not Reportable Neutrophils # (Manual) 8.8 H Lymphocytes # (Manual) 7.2 H Monocytes # (Manual) 1.1 H Eosinophils # (Manual) 0.2 Basophils # (Manual) 0.0 Differential Comment MANUAL DIFFERENTIAL WBC Morphology NORMAL APPEARANCE Platelet Estimate NORMAL (130-450,000) Platelet Morphology NORMAL APPEARANCE RBC Morph Micro Appear 1+ STOMATOCYTES PT 12.1 INR 1.1 Bld Gas Analysis Time Sample Site ABG pH ABG pCO2 ABG pO2 ABG HCO3 ABG Total CO2 ABG O2 Saturation ABG Base Excess Stoney Test Respiration Rate O2 Delivery Device Vent Mode FiO2 Tidal Volume PEEP Pressure Support Vent Sodium 136 Potassium 4.4 Chloride 103 Carbon Dioxide 16 L Anion Gap 17.0 H BUN 14 Creatinine 0.6 Estimated GFR (MDRD) 99 Glucose 312 H POC Whole Bld Glucose Lactic Acid Calcium 8.7 Magnesium 1.7 Total Bilirubin 0.6 AST 219 H ALT 48 Alkaline Phosphatase 175 H Troponin I High Sens Total Protein 6.1 L Albumin 3.7 Globulin 2.4 Albumin/Globulin Ratio 1.5 Lipase 71 10/20/23 10/20/23 10/20/23 07:35 07:37 08:00 WBC RBC Hgb Hct MCV MCH MCHC RDW Plt Count MPV Neut # (Auto) Lymph # (Auto) [place] # (Auto) Eos # (Auto) Baso # (Auto) Absolute Nucleated RBC Total Counted Band Neuts % (Manual) Abnorm Lymph % (Manual) Metamyelocytes % Myelocytes % Nucleated RBC % Neutrophils # (Manual) Lymphocytes # (Manual) Monocytes # (Manual) Eosinophils # (Manual) Basophils # (Manual) Differential Comment WBC Morphology Platelet Estimate Platelet Morphology RBC Morph Micro Appear PT INR Bld Gas Analysis Time Sample Site ABG pH ABG pCO2 ABG pO2 ABG HCO3 ABG Total CO2 ABG O2 Saturation ABG Base Excess Stoney Test Respiration Rate O2 Delivery Device Vent Mode FiO2 Tidal Volume PEEP Pressure Support Vent Sodium Potassium Chloride Carbon Dioxide Anion Gap BUN Creatinine Estimated GFR (MDRD) Glucose POC Whole Bld Glucose 304 H Lactic Acid 8.0 H* Calcium Magnesium Total Bilirubin AST ALT Alkaline Phosphatase Troponin I High Sens 86.2 H* Total Protein Albumin Globulin Albumin/Globulin Ratio Lipase 10/20/23 08:27 WBC RBC Hgb Hct MCV MCH MCHC RDW Plt Count MPV Neut # (Auto) Lymph # (Auto) [place] # (Auto) Eos # (Auto) Baso # (Auto) Absolute Nucleated RBC Total Counted Band Neuts % (Manual) Abnorm Lymph % (Manual) Metamyelocytes % Myelocytes % Nucleated RBC % Neutrophils # (Manual) Lymphocytes # (Manual) Monocytes # (Manual) Eosinophils # (Manual) Basophils # (Manual) Differential Comment WBC Morphology Platelet Estimate Platelet Morphology RBC Morph Micro Appear PT INR Bld Gas Analysis Time 0834 Sample Site LEFT RADIAL ABG pH 7.24 L ABG pCO2 42 ABG pO2 358 H* ABG HCO3 17.6 L ABG Total CO2 18.9 L ABG O2 Saturation 99 H ABG Base Excess -9.4 L Stoney Test POSITIVE Respiration Rate 20 O2 Delivery Device VENTILATOR Vent Mode SIMV FiO2 100.00 Tidal Volume 370 PEEP 5 Pressure Support Vent 12 Sodium Potassium Chloride Carbon Dioxide Anion Gap BUN Creatinine Estimated GFR (MDRD) Glucose POC Whole Bld Glucose Lactic Acid Calcium Magnesium Total Bilirubin AST ALT Alkaline Phosphatase Troponin I High Sens Total Protein Albumin Globulin Albumin/Globulin Ratio Lipase Procedures - Central Line - Major Central Line Preparation: Unable to obtain consent, Time out completed, Ultrasound used, Sterile prep and drape Central line location: Right IJ Central line type: Triple lumen Central line aftercare: Chlorhexidine disc placed, Secured, Placement confirmed, No pneumothorax, No complications, Bundle checklist complete, Pt tolerated well PD Medical Decision Making - ED course Complexity details: reviewed old records, reviewed results, re-evaluated patient, considered differential, d/w family, 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 Patient intubated, has occasional twitching activity to pain, however no purposeful movements. RT paged and present on patient's arrival to ED. Placed on ventilator. Nebulizers ordered as well as steroids, rocephin, and magnesium. ABG reviewed, ventilator settings adjusted accordingly. Patient sedated on propofol, however occasional twitching and jerking movements noted with painful stimuli. CT brain negative for acute findings. CTA chest shows multiple rib fractures, however no pneumothorax or PE. Troponin mildly elevated, however EKG x2 shows no acute ST-T wave changes or elevation to suggest ACS. Suspect likely seondary to hypoxia and cardiac arrest. Central line placed for additional line support, however since arrival to the ED BP has been stable even on propofol with no need for pressors. Discussed case with hospitalist, since patient is post-arrest and family requests full code patient should be transferred to facility with cardiology, neurology, and pulmonary capabilities. Case discussed with coater carbon paper at outside hospital, who accepted patient for transfer - Critical Care Time(min): 63 Time Includes: Direct patient care, Review records, Reassess patient, Document care, Coordinate care, Medical consult, Family consult for tx dec Data interpretation: Labs, Pulse ox, ABG, CXR, Prior EKG, Cardiac output Procedures included in critical care time: Peripheral IV, Blood draw, Ventilator mgmt Procedures excluded from critical care time: Central IV Departure - Departure Disposition: 02 Transfer Acute Care Hosp Clinical Impression: Cardiac arrest Condition: Serious Forms: PCP List Discharge Date/Time: 10/20/23 17:00
[2023-10-20 07:57] LABS: BASOPHILS % (AUTO) 0.6 %; EOSINOPHILS % (AUTO) 1.1 %; HCT - HEMATOCRIT 38.5 % (37.0-47.0); HGB - HEMOGLOBIN 12.8 g/dL (12.0-16.0); MEAN CORPUSCULAR HEMOGLOBIN 35.4 pg (27.0-31.0); MEAN CORPUSCULAR HGB CONC 33.2 g/dL (32.0-36.0); MEAN CORPUSCULAR VOLUME 106.4 fL (81.0-99.0); MEAN PLATELET VOLUME 9.6 fL (7.9-10.8); MONOCYTES % (AUTO) 3.9 %; NEUTROPHILS % (AUTO) 45.5 %; PLT - PLATELET COUNT 223 10^3/uL (130-450); RED BLOOD COUNT 3.62 10^6/uL (4.20-5.40); RED CELL DISTRIBUTION WIDTH 12.1 % (12.0-15.0); WHITE BLOOD COUNT 17.6 x10^3/uL (4.8-10.8)
[2023-10-20 08:00] LABS: INR 1.1 (0.8-1.2); PT - PROTHROMBIN TIME 12.1 secs (9.9-12.6)
[2023-10-20 08:01] LABS: ABNORMAL LYMPHS % (MANUAL) 0 %
[2023-10-20 08:07] LABS: MAGNESIUM 1.7 mg/dL (1.7-2.3)
[2023-10-20 08:08] LABS: ALBUMIN 3.7 g/dL (3.2-5.5); ALBUMIN/GLOBULIN RATIO 1.5 (1.0-2.2); BILIRUBIN,TOTAL 0.6 mg/dL (0.2-1.0); CALCIUM 8.7 mg/dL (8.5-10.3); CREATININE 0.6 mg/dL (0.6-1.3); POTASSIUM 4.4 mmol/L (3.5-4.5); TOTAL PROTEIN 6.1 g/dL (6.4-8.9)
[2023-10-20] MEDS: IPRATROPIUM/ALBUTEROL 3 ML NEB INH STA (08:08)
[2023-10-20] MEDS ORDERED: iohexoL-300 100 ML VIAL ONE (08:09)
[2023-10-20 08:11] VITALS: O2SAT 100
[2023-10-20] MEDS: ALBUTEROL NEB 2.5 MG/3 ML INH STA (08:15)
[2023-10-20 08:19] LABS: BAND NEUTROPHILS % (MANUAL) 5 %; EOSINOPHILS # (MANUAL) 0.2 10^3/uL (0-0.7); LYMPHOCYTES # (MANUAL) 7.2 10^3/uL (1.5-3.5); LYMPHOCYTES % (MANUAL) 41 %; METAMYELOCYTES % (MANUAL) 1 %; MONOCYTES # (MANUAL) 1.1 10^3/uL (0.0-1.0); MYELOCYTES % (MANUAL) 1 %; NEUTROPHILS # (MANUAL) 8.8 10^3/uL (1.5-6.6)
[2023-10-20 08:20] LABS: PLATELET ESTIMATE, MANUAL NORMAL (130-450,000) (NORMAL); PLATELET MORPHOLOGY NORMAL APPEARANCE (NORMAL); WBC MORPHOLOGY (MULTIPLE) NORMAL APPEARANCE (NORMAL)
[2023-10-20 08:21] LABS: DIFFERENTIAL COMMENT MANUAL DIFFERENTIAL
--- NOTE | 2023-10-20 08:26 | XRAY Report ---
PROCEDURE: Chest 1V INDICATIONS: POST ARREST TECHNIQUE: One view of the chest was acquired. COMPARISON: 08/24/2022. FINDINGS: Surgical changes and devices: ET tube in satisfactory position approximately 3.2 cm above the mir . Transcutaneous pacemaker. Lungs and pleura: No pleural effusions or pneumothorax. Lungs are clear. Question emphysematous radha nge. Mediastinum: Mediastinal contours appear normal. Heart size is normal. Bones and chest wall: No suspicious bony lesions. Overlying soft tissues appear unremarkable. IMPRESSION: Question emphysematous change. No focal infiltrates. ET tube in satisfactory position. Reviewed by: Sohail Cloud MD on 10/20/2023 8:24 AM PDT Approved by: Sohail Cloud MD on 10/20/2023 8:24 AM PDT Station ID: [id number]
[2023-10-20 08:35] LABS: ABG HCO3 17.6 mmol/L (22.0-26.0); ABG PCO2 42 mmHg (34-45); ABG PH 7.24 (7.35-7.45); ABG TCO2 18.9 MMOL/L (21.0-29.0)
[2023-10-20 08:36] LABS: ABG BASE EXCESS -9.4 mmol/L (-2.0-3.0); ABG MODE OF VENTILATION SIMV; ABG OXYGEN SATURATION 99 % (94-98); ABG RESPIRATORY RATE 20 b/min; ALLEN TEST POSITIVE
[2023-10-20 08:38] LABS: ABG PO2 358 mmHg (80-100)
[2023-10-20] MEDS: SODIUM CHLORIDE 0.9% 1,000 ML IV STA (08:46)
[2023-10-20] MEDS: cefTRIAXone 1 GM VIAL IVP STA (09:41)
[2023-10-20] MEDS: iohexoL-300 100 ML VIAL IVP ONE (09:53)
--- NOTE | 2023-10-20 09:54 | CT Report ---
PROCEDURE: Head WO INDICATIONS: POST ARREST TECHNIQUE: Noncontrast 4.5 mm thick angled axial sections acquired from the foramen magnum to the vertex. For r adiation dose reduction, the following was used: automated exposure control, adjustment of mA and/or kV according to patient size. COMPARISON: None. FINDINGS: Image quality: Excellent. CSF spaces: Basal cisterns are patent. No extra-axial fluid collections. Ventricles are normal in size and shape. Brain: No midline shift. No intracranial masses or hemorrhage. Rothman-white matter interface is norm al. Skull and face: Calvarium and visualized facial bones are intact, without suspicious lesions. Sinuses: Visualized sinuses and mastoids are clear. IMPRESSION: No acute intracranial pathology. Reviewed by: Vikas Abrams MD on 10/20/2023 9:53 AM PDT Approved by: Vikas Abrams MD on 10/20/2023 9:53 AM PDT Station ID: [id number]
--- NOTE | 2023-10-20 10:03 | CT Report ---
PROCEDURE: Angio Chest INDICATIONS: S/P RESPIRATORY ARREST W/ROSC CONTRAST: Omni 300 100ml TECHNIQUE: After the administration of intravenous contrast, 2 mm axial images were acquired from the pulmonary apices to the posterior costophrenic angles during the arterial phase. In addition, 1 mm lung kernel and 5 mm soft tissue kernel reconstructions were performed. 3-dimensional coronal oblique maximum int ensity projection (MIP) reformats, 8 mm axial MIP, and 5 mm coronal and sagittal MPR reformats were t hen performed through the thorax. For radiation dose reduction, the following was used: automated exp osure control, adjustment of mA and/or kV according to patient size. COMPARISON: None. FINDINGS: Image quality: Excellent. Large vessels: No filling defects within the opacified pulmonary arteries, accounting for motion and contrast timing. No evidence of acute aortic syndrome or aortic aneurysm. Lungs and pleura: Endotracheal tube with tip approximately 3 cm below the mir. No consolidation. N o pleural effusions. No pneumothorax. No suspicious pulmonary nodules which require follow up. Mild linear atelectasis versus scarring at the lung bases. Mediastinum: Heart size is normal. No pericardial effusion. No large vessel abnormality. Atherosclero tic vascular desiccation. No mediastinal adenopathy by size criteria. Chest wall and lower neck: Thyroid is unremarkable. No axillary or supraclavicular adenopathy by size . Bones: No aggressive osseous abnormality. Multiple mildly displaced anterolateral rib fracture bilate rally. Mildly displaced fractures of the sternum. Severe compression of T11. Mild compression deformi ties of T6, T7 and T8. Diffusely decreased osseous mineralization. Upper Abdomen: Unremarkable. IMPRESSION: 1.No pulmonary embolus. 2.No acute cardiopulmonary process is identified. 3.Multiple mildly displaced anterolateral rib fractures bilaterally. Mildly displaced sternal fractur es without retrosternal hematoma. 4.Severe compression deformity of T11 and mild compression deformities of T6, T7 and T8. Reviewed by: Vikas Oneil MD on 10/20/2023 10:02 AM PDT Approved by: Vikas Oneil MD on 10/20/2023 10:02 AM PDT Station ID: [id number]
[2023-10-20] MEDS ORDERED: DEXMEDETOMIDINE 400 MCG/100 ML 100 ML IV PRN (11:03)
[2023-10-20] MEDS: DEXMEDETOMIDINE 400 MCG in SODIUM CHLORIDE 0.9% 100ML 96 ML IV PRN (11:22)
--- NOTE | 2023-10-20 12:26 | XRAY Report ---
PROCEDURE: Chest for Line Placement INDICATIONS: POST CVC TECHNIQUE: One view of the chest was acquired. COMPARISON: Chest radiograph 10/20/2023. FINDINGS: Surgical changes and devices: Endotracheal tube terminates 4.4 cm above the mir. Enteric tube cou rses below the diaphragm with distal tip not visualized. Right central venous catheter with tip proje cting over the lower SVC. Lungs and pleura: Small left pleural effusion. No pneumothorax. Lungs are clear. Mediastinum: Mediastinal contours appear normal. Heart size is normal. Bones and chest wall: No suspicious bony lesions. Overlying soft tissues appear unremarkable. IMPRESSION: Right central venous catheter with tip projecting over the lower SVC, in appropriate position. Reviewed by: Krystle Beck MD, PhD on 10/20/2023 12:24 PM PDT Approved by: Krystle Beck MD, PhD on 10/20/2023 12:24 PM PDT Station ID: [id number]
[2023-10-20] MEDS ORDERED: PROPOFOL 1000 MG/100 ML 1,000 MG/100 ML BOTTLE IV ONE (16:31)
[2023-10-20] MEDS: PROPOFOL 1000 MG/100 ML 1,000 MG/100 ML BOTTLE IV SCH (16:35)
[2023-10-20 16:51] VITALS: BP 83/61
== END 2023-10-20 17:00 | disposition short-term general hospital (02) ==
LOC: EDBD → EDUNIT# → ED 07:34
DX: I46.9 Cardiac arrest, cause unspecified (principal); J44.9 Chronic obstructive pulmonary disease, unspecified; F17.200 Nicotine dependence, unspecified, uncomplicated
CPT/HCPCS: 36415; 36556; 36600; 51702; 70450; 71045; 71275; 80053; 82803; 83605; 83690; 83735; 84484; 85025; 85610; 87040; 93005; 94002; 94640; 96361; 96374; 96375; 96376; 99291; Q9967